=== PATIENT | male | born 1940 | race Caucasian/White ===

== ENCOUNTER 2017-10-17 07:22 | Day surgery (SDC) | payer MEDICARE, OTHER, SELFPAY ==
[2017-10-17 08:16] VITALS: BP 121/75; PULSE 79; RESP 16; TEMP 36.1; O2SAT 98; BMI 33.0
[2017-10-17] MEDS: PROPARACAINE 0.5% OPHTH SOL 2 DROPS EYE-OP (08:29)
[2017-10-17] MEDS: CATARACT EYE COMPOUND (10 DROPS/SYRINGE) 3 DROPS EYE-OP (08:31)
--- NOTE | 2017-10-17 09:33 | P.OP_ITS ---
Operative Date/Time/Diagnoses Pre-op diagnosis: Cataract Left eye Post-op diagnosis: same Procedure & Clinicians Surgeon: Esvin Cisse Anesthesia Type: MAC +/- and Sedation Operative Notes Procedure in detail: Patient brought to the operating suite. Tetracaine drops placed in the left eye. Patient was prepped and draped in sterile manner. Wire lid speculum was placed in the eye. Betadine drops were placed on the eye. This was irrigated. Lidocaine jelly was placed on the eye. A paracentesis port was created with a side-port blade. 0.1 mL 1% preservative free lidocaine was injected into the anterior chamber. The anterior chamber was deepened with viscoelastic. 2.6 mm keratome was used to create a temporal clear corneal incision. Cystotome and Utrata forceps were used to create continuous tear capsulorrhexis. Balanced salt solution was used to hydro dissect the nucleus. The phacoemulsification handpiece was inserted and the nucleus was removed using the stop and chop technique. The irrigation aspiration handpiece was inserted and the remaining cortex was removed. Anterior chamber was deepened with viscoelastic. An Abad ZCB00 intraocular lens with a power of 23.5 was injected into the capsular bag. Irrigation aspiration handpiece was inserted and the remaining viscoelastic was removed. Incision was hydrated with balanced salt solution and found to be leak free with pressure with Weck- Raina sponges. 0.1 mL Vigamox injected anterior chamber. 0.3 mL Kenalog 10 mg was injected subconjunctivally. Lid speculum was removed. The patient left the operating room in excellent condition. Complications: none Condition: stable Disposition: same day surgery
--- NOTE | 2017-10-17 09:33 | P.OP.PRE_ITS ---
Pre-operative Note Interval Note Changes: No
--- NOTE | 2017-10-17 09:33 | PM.PREOP ---
Pre-operative Note Interval Note Changes: No
[2017-10-17] MEDS: MOXIFLOXACIN OPHTH DROPS 3 ML BOTTLE 2 DROPS INJ (09:52)
[2017-10-17] MEDS: CHONDROIDTIN/SOD HYALURONATE 1.05 ML SYRINGE INTRAOCULA (09:52)
[2017-10-17] MEDS: PHENYLEPHRINE/LIDOCAINE VIAL (OR) 0.2 ML EYE-OP (09:52)
[2017-10-17] MEDS: LIDOCAINE JELLY 2% 5 ML 1 APPLIC TOP (09:52)
[2017-10-17] MEDS: TETRACAINE 0.5% OPHTH DROPS 15 ML 2 DROPS EYE-LEFT (09:52)
[2017-10-17] MEDS: BALANCED SALT IRRIG SOLN NO.2 500 ML, EPINEPHrine 1 MG IRR (09:53)
[2017-10-17] MEDS: TRIAMCINOLONE 50 MG/5 ML VIAL INJ (09:53)
[2017-10-17 10:24] VITALS: BP 117/79; PULSE 69; RESP 14; TEMP 36.3; O2SAT 96
== END 2017-10-17 10:24 | disposition home or self-care (01) ==
PROVIDERS: Family Provider Family Medicine; PCP Family Medicine; Visit Provider Ophthalmology
DX: H25.12 Age-related nuclear cataract, left eye (principal); G62.9 Polyneuropathy, unspecified; G47.33 Obstructive sleep apnea (adult) (pediatric)
CPT/HCPCS: J0171; J2250; J3010; J3301

== ENCOUNTER 2017-10-31 07:24 | Day surgery (SDC) | payer MEDICARE, OTHER, SELFPAY ==
[2017-10-31 07:46] VITALS: BP 110/67; PULSE 86; RESP 16; TEMP 36.3; O2SAT 97; BMI 34.3
[2017-10-31] MEDS: PROPARACAINE 0.5% OPHTH SOL 2 DROPS EYE-OP (07:57)
[2017-10-31] MEDS: CATARACT EYE COMPOUND (10 DROPS/SYRINGE) 3 DROPS EYE-OP (07:58)
--- NOTE | 2017-10-31 09:15 | P.OP.PRE_ITS ---
Pre-operative Note Interval Note Changes: No
--- NOTE | 2017-10-31 09:15 | PM.PREOP ---
Pre-operative Note Interval Note Changes: No
--- NOTE | 2017-10-31 09:16 | P.OP_ITS ---
Operative Date/Time/Diagnoses Pre-op diagnosis: Cataract Right eye Post-op diagnosis: same Procedure & Clinicians Procedure: Cataract Surgery Same procedure as scheduled: Yes Surgeon: Esvin Cisse Anesthesia Type: MAC +/- and Sedation Operative Notes Procedure in detail: Patient brought to the operating suite. Tetracaine drops placed in the right eye. Patient was prepped and draped in sterile manner. Wire lid speculum was placed in the eye. Betadine drops were placed on the eye. This was irrigated. Lidocaine jelly was placed on the eye. A paracentesis port was created with a side-port blade. 0.1 mL 1% preservative free lidocaine was injected into the anterior chamber. The anterior chamber was deepened with viscoelastic. 2.6 mm keratome was used to create a temporal clear corneal incision. Cystotome and Utrata forceps were used to create continuous tear capsulorrhexis. Balanced salt solution was used to hydro dissect the nucleus. The phacoemulsification handpiece was inserted and the nucleus was removed using the stop and chop technique. The irrigation aspiration handpiece was inserted and the remaining cortex was removed. Anterior chamber was deepened with viscoelastic. An Abad ZCB00 intraocular lens with a power of 24.5 was injected into the capsular bag. Irrigation aspiration handpiece was inserted and the remaining viscoelastic was removed. Incision was hydrated with balanced salt solution and found to be leak free with pressure with Weck- Raina sponges. 0.1 mL Vigamox injected anterior chamber. 0.3 mL Kenalog 10 mg was injected subconjunctivally. Lid speculum was removed. The patient left the operating room in excellent condition. Complications: none Condition: stable Disposition: same day surgery
--- NOTE | 2017-10-31 09:30 | SUR.OPER ---
Supine on eye stretcher, head on extension cradle secured with tape. Arms tucked at sides with blanket. Pillow under knees.
[2017-10-31] MEDS: TRIAMCINOLONE 50 MG/5 ML VIAL INJ (09:31)
[2017-10-31] MEDS: MOXIFLOXACIN OPHTH DROPS 3 ML BOTTLE 2 DROPS INJ (09:31)
[2017-10-31] MEDS: PHENYLEPHRINE/LIDOCAINE VIAL (OR) 0.2 ML EYE-OP (09:31)
[2017-10-31] MEDS: BALANCED SALT IRRIG SOLN NO.2 500 ML, EPINEPHrine 1 MG IRR (09:32)
[2017-10-31] MEDS: TETRACAINE 0.5% OPHTH DROPS 15 ML 2 DROPS EYE-RIGHT (09:32)
[2017-10-31] MEDS: CHONDROIDTIN/SOD HYALURONATE 1.05 ML SYRINGE INTRAOCULA (09:33)
[2017-10-31] MEDS: LIDOCAINE JELLY 2% 5 ML 1 APPLIC TOP (09:33)
[2017-10-31 09:47] VITALS: BP 100/63; PULSE 62; RESP 15; TEMP 36.6; O2SAT 98
[2017-10-31 09:52] VITALS: BP 110/67; PULSE 86; RESP 16; TEMP 36.3; O2SAT 97
== END 2017-10-31 10:13 ==
LOC: OR 07:26
PROVIDERS: Family Provider Family Medicine; PCP Family Medicine; Visit Provider Ophthalmology
DX: H25.11 Age-related nuclear cataract, right eye (principal); G47.33 Obstructive sleep apnea (adult) (pediatric)
CPT/HCPCS: J0171; J2250; J3010; J3301

== ENCOUNTER → 2018-10-30 14:13 | Outpatient (CLI) | payer MEDICARE, OTHER, SELFPAY ==
--- NOTE | 2018-10-30 14:17 | DI.RAD.S_ITS ---
PROCEDURE: XR CHEST 2V INDICATIONS: cough TECHNIQUE: 2 views of the chest were acquired. COMPARISON: [facility], CT, CT CHEST WITHOUT CONTRAST, 08/29/2017, 14:14. [facility], CR, CHEST 2 VIEW, 07/15/2014, 14:58. FINDINGS: Surgical changes and devices: None. Lungs and pleura: Right hemidiaphragm eventration. Lungs are clear. No pleural effusions or pneumothorax. Mediastinum: Mediastinal contours are normal. Heart size is normal. Bones and chest wall: No suspicious bony abnormalities. Soft tissues appear unremarkable. IMPRESSION: No acute cardiopulmonary disease. Dictated by: Demetrio Ruiz M.D. on 10/30/2018 at 16:11 Approved by: Demetrio Ruiz M.D. on 10/30/2018 at 16:12
== END ==
PROVIDERS: PCP Family Medicine; Visit Provider Family Medicine
DX: R05 Cough (principal); M79.89 Other specified soft tissue disorders
CPT/HCPCS: 71046

== ENCOUNTER 2019-01-30 16:39 | Emergency (ER) | payer MEDICARE, OTHER, SELFPAY ==
[2019-01-30 16:45] VITALS: BP 145/85; PULSE 76; RESP 20; O2SAT 99
--- NOTE | 2019-01-30 16:50 | DI.RAD.S_ITS ---
PROCEDURE: XR CHEST 1V INDICATIONS: sob/ syncope TECHNIQUE: One view of the chest was acquired. COMPARISON: [facility], CT, CT CHEST WITHOUT CONTRAST, 08/29/2017, 14:14. [facility], CR, XR CHEST 2V, 10/30/2018, 14:17. FINDINGS: Surgical changes and devices: None. Lungs and pleura: Lungs are clear. No pleural effusions or pneumothorax. Mediastinum: Mediastinal contours appear normal. Heart size is normal. There is elevation of the right hemidiaphragm, as before. Bones and chest wall: No suspicious bony lesions. Overlying soft tissues appear unremarkable. IMPRESSION: No acute cardiopulmonary findings. Dictated by: Roula Deleon M.D. on 01/30/2019 at 16:20 Approved by: Roula Deleon M.D. on 01/30/2019 at 16:23
--- NOTE | 2019-01-30 16:50 | DI.CT.S_ITS ---
PROCEDURE: CT HEAD/BRAIN WO CON INDICATIONS: syncope/ hit head TECHNIQUE: Noncontrast 4.5 mm thick angled axial sections acquired from the foramen magnum to the vertex, with coronal and sagittal reformats. For radiation dose reduction, the following was used: automated exposure control, adjustment of mA and/or kV according to patient size. COMPARISON: None. FINDINGS: Image quality: Excellent. CSF spaces: Basal cisterns are patent. No extra-axial fluid collections. The ventricles are symmetric in size and shape. Brain: No intracranial bleeds or masses. There is cerebral volume loss for age, with resultant ventricular and sulcal prominence. There are periventricular and deep white matter chronic small vessel ischemic changes. There is intracranial internal carotid artery atherosclerosis. Skull and face: Calvarium and visualized facial bones appear intact, without suspicious lesions. Sinuses: Visualized sinuses and mastoids are clear. IMPRESSION: No acute intracranial findings. Dictated by: Roula Deleon M.D. on 01/30/2019 at 16:23 Approved by: Roula Deleon M.D. on 01/30/2019 at 16:25
[2019-01-30 16:59] LABS: Add Manual Diff / Slide Review NO; Basophils Absolute Auto 0 /uL (0-100); Basophils Percent Auto 0.7 % (0-2); Eosinophils Absolute Auto 100 /uL (0-450); Eosinophils Percent Auto 1.3 % (2-4); Hematocrit 42.9 % (41-53); Hemoglobin 14.9 g/dL (13.5-17.5); Lymphocytes Absolute Auto 1300 /uL (1100-4500); Mean Corpuscular HGB Conc 34.7 % (30-36); Mean Corpuscular Hemoglobin 34.3 PG (26-34); Mean Corpuscular Volume 98.9 fL (80-100); Monocytes Absolute Auto 500 /uL (0-900); Monocytes Percent Auto 7.2 % (3-14); Neutrophils Absolute Auto 5500 /uL (1500-7000); Neutrophils Percent Auto 73.8 % (50-75); Platelet Count 201 X10^3/uL (150-400); Red Blood Cell Count 4.34 X10^6/uL (4.5-5.9); Red Cell Distribution Width 13.2 % (11.6-14.8); White Blood Cell Count 7.4 X10^3/uL (4.5-11.0)
[2019-01-30] MEDS: SODIUM CHLORIDE 0.9% 1,000 ML 150 ML IV (17:03)
[2019-01-30 17:06] LABS: INR 1.1 (0.9-1.3); Prothrombin Time 12.1 SECONDS (10.1-12.7)
[2019-01-30 17:11] LABS: Alanine Aminotransferase 21 IU/L (<50); Albumin 4.2 g/dL (3.5-5.0); Albumin Globulin Ratio 1.4 (1.0-2.8); Alkaline Phosphatase 63 U/L (38-126); Aspartate Aminotransferase 32 IU/L (17-59); BUN Creatinine Ratio 24.2 (6-22); Bilirubin Total 0.7 mg/dL (0.2-1.3); Blood Urea Nitrogen 29 mg/dL (9-20); Calcium 9.4 mg/dL (8.4-10.2); Carbon Dioxide 27 mmol/L (22-32); Chloride 100 mmol/L (98-107); Creatine Kinase 53 U/L (55-170); Estimated Glomerular Filt Rate 58.7 mL/min (>60); Globulin 2.9 g/dL (1.7-4.1); Glucose 146 mg/dL (80-110); HEMOLYSIS 29 (0-50); Magnesium 2.2 mg/dL (1.6-2.3); Potassium 4.6 mmol/L (3.4-5.1); Sodium 136 mmol/L (137-145); Total Protein 7.1 g/dL (6.3-8.2)
[2019-01-30 17:21] LABS: B Type Natriuretic Peptide < 100 (<100)
[2019-01-30 17:22] LABS: Troponin I < 0.012 ng/mL (0.01-0.034)
--- NOTE | 2019-01-30 17:28 | PC.NURSE ---
pt refusing flu test. ANSWERING SERVICE TELEPHONE OPERATOR made aware
--- NOTE | 2019-01-30 18:14 | PC.NURSE ---
pt refusing 2nd trop. declines wanting to continue to infuse fluids. asking to go home. BALANCE SHEET ANALYST aware and arranging DC
--- NOTE | 2019-01-30 19:05 | ED_ITS ---
HPI - Syncope <Cyndee Jewell, TARP REPAIRER-BC - Last Filed: 01/30/19 19:12> General Chief Complaint: Syncope Stated Complaint: passed out in kitchen,might have hit head Time Seen by Provider: 01/30/19 16:43 Source: patient and family Mode of arrival: Ambulatory Limitations: no limitations History of Present Illness HPI narrative: The patient is a 78-year-old male former smoker with history of asthma syncope who presents for chief complaint of syncope in the kitchen earlier today. He states he was reaching up towards the Fridge, and passed out for about 2 seconds. He states he thinks he hit his head on the Fridge. He states that he has passed out before is not very concerned about that. He is concerned about the fact that he hit his head. He denies chest pain shortness of breath, neck pain back pain. He states his head hurts. He is not concerned about his heart. He denies any fever nausea vomiting or diarrhea. He denies any abdominal pain. Related Data Home Medications Medication Instructions Recorded Confirmed Fish Oil (#FISH OIL) 1,000 iu PO Q DAY #0 09/16/10 10/30/18 Coenzyme Q10 (#COQ(10)10) 10 mg PO QDAY #0 05/30/12 10/30/18 Ginkgo Biloba (#GINKGO BILOBA PLUS) 1 cap PO QDAY #0 05/30/12 10/30/18 MULTIVITAMIN (#MULTIPLE VITAMINS) 1 cap PO QDAY #0 05/30/12 10/30/18 azelastine 2 spray INTRANASAL HSP PRN #0 01/19/16 10/30/18 diphenhydramine HCl [Benadryl 25 mg PO Q6HP PRN #0 05/04/17 10/30/18 Allergy] albuterol sulfate [ProAir HFA] 2 puff INHALATION Q4-6H PRN 10/17/17 10/30/18 calcium carbonate-vitamin D3 1 tab PO QDAY 10/17/17 10/30/18 [Oyster Shell Calcium-Vit D3] fluticasone propion-salmeterol 2 puff INHALATION BID 10/17/17 10/30/18 [Advair HFA] ibuprofen 400 mg PO BIDP PRN 10/17/17 10/30/18 oxymetazoline [Afrin 1 - 2 spray INTRANASAL HSP PRN 10/17/17 10/30/18 (oxymetazoline)] tiotropium bromide [Spiriva 2 puff INHALATION DAILY 10/17/17 10/30/18 Respimat] Previous Rx's Medication Instructions Recorded Spacer: Inhaler Spacer Device d INH Q4HP PRN #1 12/13/16 fluticasone propionate 50 1 spray INTRANASAL BID #3 bot 11/30/17 mcg/actuation nasal spray,suspension benzonatate 100 mg capsule 100 mg PO TID PRN #30 cap 06/06/18 Disabled Parking Permit #1 ea 06/12/18 tamsulosin 0.4 mg capsule 0.4 mg PO QDAY #90 cap 10/19/18 albuterol sulfate 2.5 mg CONTINUOUS NEBULIZATION QID 10/30/18 PRN PRN #75 ml aspirin 81 mg tablet,delayed 81 mg PO QDAY #100 tab 10/30/18 release furosemide 40 mg tablet 40 mg PO QDAY #90 tab 10/30/18 polyethylene glycol 3350 17 17 gram PO QDAY #1530 gram 10/30/18 gram/dose oral powder sertraline 50 mg tablet 50 mg PO .HS #90 tab 11/13/18 Allergies Allergy/AdvReac Type Severity Reaction Status Date / Time sulfadiazine [SULFADIAZINE] Allergy Mild CHILDHOOD Verified 10/30/18 13:43 ALLERGY Review of Systems <GRADY Buckley - Last Filed: 01/30/19 19:12> Review of Systems Narrative: GENERAL: Denies chills, fatigue, malaise, fever, sweats. HEENT: Denies sinus pain, ear pain, sore throat, difficulty swallowing, dizziness. RESPIRATORY: Denies dyspnea, cough, wheezing, hemoptysis, sputum. CARDIOVASCULAR: Denies chest pain, palpitations, orthopnea, edema, GASTROINTESTINAL: Denies nausea, vomiting, abdominal pain, diarrhea, constipation, melena. : Denies dysuria, frequency, incontinence, hematuria, urinary retention. MUSCULOSKELETAL: denies weakness, joint pain, or bony pain SKIN: Denies rash, skin lesions, or other NEUROLOGIC: See HPI PSYCHIATRIC: No concerning psychosocial issues. 12 point review of systems is negative except for those stated above Patient History <GRADY Buckley - Last Filed: 01/30/19 19:12> Medical History Asthma (Chronic) Chicken pox (Resolved 1971) Chronic headaches (Chronic) Colon polyps (Resolved 05/13/08) Diverticulosis, sigmoid (Chronic 05/13/08) Frequent UTI (Resolved) Hayfever (Chronic 1954) Head injury (Resolved 12/2011) Lesion of nose (Resolved) Mumps (Resolved ~1951) Peripheral neuropathy (Chronic) PTSD (post-traumatic stress disorder) (Chronic 1965) Rotator cuff injury (Resolved 2008) Shoulder pain (Chronic 2008) Skin tags, multiple acquired (Resolved) Sleep apnea (Chronic) Surgical History Anesthesia (Resolved) H/O wisdom tooth extraction (Resolved) History of colonoscopy with polypectomy (Resolved 05/13/08) History of colonoscopy with polypectomy (Resolved 11/09/15) History of local excision of skin lesion (Resolved) History of right cataract surgery (Resolved 10/31/17) History of surgery of head (Resolved 12/2011) Status post arthroscopy (Resolved 1997) Status post hernia repair (Resolved 10/2006) Status post surgical removal of nail matrix of toe (Resolved) Family History Brother Age: 89 Skin cancer Father Dementia Mental health problem Stroke Prostate cancer Grandfather Mental health problem Grandmother Heart disease Heart attack Mother Gallbladder disease Stroke Breast cancer Grandfather No problems noted. Grandmother No problems noted. Sister No problems noted. Social History household members: spouse Smoking Status: Former smoker Smoking Status: Former smoker Exam <GRADY Buckley - Last Filed: 01/30/19 19:12> Narrative Exam Narrative: GENERAL: This is a well-nourished, well-developed patient, in no acute distress HEAD: Atraumatic. Normocephalic. No temporal or scalp tenderness. EYES: Pupils equal round and reactive. Extraocular motions intact. No scleral icterus. No injection or drainage. ENT: Nose without bleeding, purulent drainage or septal hematoma. Throat without erythema, tonsillar hypertrophy or exudate. Uvula midline. Airway patent. NECK: Trachea midline. No JVD or lymphadenopathy. Supple, nontender, no meningeal signs. CARDIOVASCULAR: Regular rate and rhythm RESPIRATORY: Clear to auscultation. Breath sounds equal bilaterally. No wheezes, rales, or rhonchi. No cough. No increased respiratory effort. No accessory muscle use. GASTROINTESTINAL: Abdomen soft, non-tender, nondistended. No hepato- splenomegaly, or palpable masses. No guarding. Active bowel sounds all 4 quadrants. EXTREMITIES: No clubbing, cyanosis, or edema. No joint tenderness, effusion, or edema noted. BACK: Nontender without deformity or crepitance. No flank tenderness. No pain to CT or L-spine palpation. NEURO: AOx3. Steady gait. Using all extremities equally. No gross cranial nerve deficit. Clear speech. SKIN: No rash or erythema on visible skin Initial Vital Signs Initial Vital Signs: Vital Signs Pulse Rate 76 01/30/19 16:45 Respiratory Rate 20 01/30/19 16:45 Blood Pressure 145/85 H 01/30/19 16:45 Pulse Oximetry 99 01/30/19 16:45 <Mag Momin DO - Last Filed: 01/31/19 07:27> Initial Vital Signs Initial Vital Signs: Vital Signs Pulse Rate 76 01/30/19 16:45 Respiratory Rate 20 01/30/19 16:45 Blood Pressure 145/85 H 01/30/19 16:45 Pulse Oximetry 99 01/30/19 16:45 Course <GRADY Buckley - Last Filed: 01/30/19 19:12> Orders Ordered: Discontinued Medications Sodium Chloride (Normal Saline 0.9%) 1,000 mls @ 150 mls/hr IV CONT NANCY Last Infusion: 01/30/19 18:33 Dose: 0 mls/hr Documented by: Infusion: 01/30/19 17:04 Dose: 1,000 mls/hr Documented by: Admin: 01/30/19 17:03 Dose: 150 mls/hr Documented by: JIE Sodium Chloride (Normal Saline 0.9%) 1,000 mls @ 1,000 mls/hr IV BOLUS ONE Stop: 01/30/19 18:22 Last Admin: 01/30/19 18:33 Dose: Not Given Documented by: JIE Vital Signs Vital signs: Vital Signs - 8 hr 01/30/19 16:45 Pulse Rate 76 Respiratory Rate 20 Blood Pressure 145/85 H Pulse Oximetry 99 <Mag Momin DO - Last Filed: 01/31/19 07:27> Orders Ordered: Discontinued Medications Sodium Chloride (Normal Saline 0.9%) 1,000 mls @ 150 mls/hr IV CONT NANCY Last Infusion: 01/30/19 18:33 Dose: 0 mls/hr Documented by: Infusion: 01/30/19 17:04 Dose: 1,000 mls/hr Documented by: Admin: 01/30/19 17:03 Dose: 150 mls/hr Documented by: JIE Sodium Chloride (Normal Saline 0.9%) 1,000 mls @ 1,000 mls/hr IV BOLUS ONE Stop: 01/30/19 18:22 Last Admin: 01/30/19 18:33 Dose: Not Given Documented by: JIE Vital Signs Vital signs: Vital Signs - 8 hr 01/30/19 16:45 Pulse Rate 76 Respiratory Rate 20 Blood Pressure 145/85 H Pulse Oximetry 99 MDM - Syncope <GRADY Buckley - Last Filed: 01/30/19 19:12> Lab Data Attestation: I reviewed the patient's lab results. Result diagrams: 01/30/19 16:49 01/30/19 16:49 Labs: Lab Results 01/30/19 01/30/19 01/30/19 Range/Units 16:49 16:49 16:49 WBC 7.4 (4.5-11.0) X10^3/uL RBC 4.34 L (4.5-5.9) X10^6/uL Hgb 14.9 (13.5-17.5) g/dL Hct 42.9 (41-53) % MCV 98.9 (80-100) fL MCH 34.3 H (26-34) PG MCHC 34.7 (30-36) % RDW 13.2 (11.6-14.8) % Plt Count 201 (150-400) X10^3/uL Neut % (Auto) 73.8 (50-75) % Lymph % (Auto) 17.0 L (25-40) % Kemper % (Auto) 7.2 (3-14) % Eos % (Auto) 1.3 L (2-4) % Baso % (Auto) 0.7 (0-2) % Neut # (Auto) 5500 (5731-1040) /uL Lymph # (Auto) 1300 (2349-4082) /uL Kemper # (Auto) 500 (0-900) /uL Eos # (Auto) 100 (0-450) /uL Baso # (Auto) 0 (0-100) /uL PT 12.1 (10.1-12.7) SECONDS INR 1.1 (0.9-1.3) Sodium 136 L (137-145) mmol/L Potassium 4.6 (3.4-5.1) mmol/L Chloride 100 (98-107) mmol/L Carbon Dioxide 27 (22-32) mmol/L BUN 29 H (9-20) mg/dL Creatinine 1.20 (0.66-1.25) mg/dL Estimated GFR 58.7 L (>60) mL/min BUN/Creatinine Ratio 24.2 H (6-22) Glucose 146 H (80-110) mg/dL Calcium 9.4 (8.4-10.2) mg/dL Magnesium 2.2 (1.6-2.3) mg/dL Total Bilirubin 0.7 (0.2-1.3) mg/dL AST 32 (17-59) IU/L ALT 21 (<50) IU/L Alkaline Phosphatase 63 (38-126) U/L Total Creatine Kinase 53 L (55-170) U/L CK-MB (CK-2) TNP CK-MB (CK-2) Rel Index TNP Troponin I < 0.012 (0.01-0.034) ng/mL B-Natriuretic Peptide < 100 (<100) Total Protein 7.1 (6.3-8.2) g/dL Albumin 4.2 (3.5-5.0) g/dL Globulin 2.9 (1.7-4.1) g/dL Albumin/Globulin Ratio 1.4 (1.0-2.8) Imaging Data CT scan - head: Radiologist's Impression: [address] [address] [address] Scan Report Signed Patient: Willis Irwin R#: [id number] : [id number]:[id number] Age/Sex: 78 / MDate of Service: 01/30/19 Loc: ED Accession Number: [id number] Procedure: CT head/brain wo con Ordering Provider: Cyndee Jewell PROCEDURE: CT HEAD/BRAIN WO CON INDICATIONS: syncope/ hit head TECHNIQUE: Noncontrast 4.5 mm thick angled axial sections acquired from the foramen magnum to the vertex, with coronal and sagittal reformats. For radiation dose reduction, the following was used: automated exposure control, adjustment of mA and/or kV according to patient size. COMPARISON: None. FINDINGS: Image quality: Excellent. CSF spaces: Basal cisterns are patent. No extra-axial fluid collections. The ventricles are symmetric in size and shape. Brain: No intracranial bleeds or masses. There is cerebral volume loss for age, with resultant ventricular and sulcal prominence. There are periventricular and deep white matter chronic small vessel ischemic changes. There is intracranial internal carotid artery atherosclerosis. Skull and face: Calvarium and visualized facial bones appear intact, without s uspicious lesions. Sinuses: Visualized sinuses and mastoids are clear. IMPRESSION: No acute intracranial findings. Dictated by: Roula Deleon M.D. on 01/30/2019 at 16:23 Approved by: Roula Deleon M.D. on 01/30/2019 at 16:25 Chest x-ray: Radiologist's Impression: Willis Irwin J 78 M [address] [address] XRay Report Signed Patient: Willis Irwin R#: [id number] : 2Acct:[id number] Age/Sex: 78 / MDate of Service: 01/30/19 Loc: ED Accession Number: [id number] Procedure: XR chest 1V Ordering Provider: Cyndee Jewell PROCEDURE: XR CHEST 1V INDICATIONS: sob/ syncope TECHNIQUE: One view of the chest was acquired. COMPARISON: [facility], CT, CT CHEST WITHOUT CONTRAST, 08/29/2017, 14:14. [facility], CR, XR CHEST 2V, 10/30/2018, 14:17. FINDINGS: Surgical changes and devices: None. Lungs and pleura: Lungs are clear. No pleural effusions or pneumothorax. Mediastinum: Mediastinal contours appear normal. Heart size is normal. There is elevation of the right hemidiaphragm, as before. Bones and chest wall: No suspicious bony lesions. Overlying soft tissues appear unremarkable. IMPRESSION: No acute cardiopulmonary findings. Dictated by: Roula Deleon M.D. on 01/30/2019 at 16:20 Approved by: Roula Deleon M.D. on 01/30/2019 at 16:23 ECG Data Attestation: I personally reviewed and interpreted this ECG as follows: Interpretation: Sinus rhythm. Ventricular rate 63. P.r. [address]RS 107[address] View[address] by Dr. Momin MDM Narrative Medical decision making narrative: The patient is a 78-year-old male who presents with a chief complaint of hitting his head after a short episode of syncope earlier today. He states he does have episodes of syncope, has had them before and is not concerned about that. He is more concerned about the fact that he hit his head. Given that he did hit his head, has older age, I did get a head CT which came back negative for any acute findings. The patient also had a chest x-ray, basic lab work and a troponin. Initial troponin was negative. Chest x-ray had no acute findings. I discussed further IV fluids as I suspect the patient is dehydrated given his BUN creatinine, and initial dry mucous membranes on exam, as well as a 2nd troponin in 3 hours after the 1st 1. The patient declined to wait for further IV fluids, declined a 2nd troponin. I stated that this would help rule out an acute cardiac event, but the patient did not want to wait and wanted to leave. I discussed that this increases as risks and he is okay with that. Patient states understanding of return precautions as well as follow-up care and has no questions or concerns upon discharge. Discussed following up with PCP in the next few days. Discussed coming back to ER for any acute concerns such as chest pain, shortness of breath etcetera <Mag Momin, DO - Last Filed: 01/31/19 07:27> Lab Data Labs: Lab Results 01/30/19 01/30/19 01/30/19 Range/Units 16:49 16:49 16:49 WBC 7.4 (4.5-11.0) X10^3/uL RBC 4.34 L (4.5-5.9) X10^6/uL Hgb 14.9 (13.5-17.5) g/dL Hct 42.9 (41-53) % MCV 98.9 (80-100) fL MCH 34.3 H (26-34) PG MCHC 34.7 (30-36) % RDW 13.2 (11.6-14.8) % Plt Count 201 (150-400) X10^3/uL Neut % (Auto) 73.8 (50-75) % Lymph % (Auto) 17.0 L (25-40) % Kemper % (Auto) 7.2 (3-14) % Eos % (Auto) 1.3 L (2-4) % Baso % (Auto) 0.7 (0-2) % Neut # (Auto) 5500 (0800-0263) /uL Lymph # (Auto) 1300 (7678-8999) /uL Kemper # (Auto) 500 (0-900) /uL Eos # (Auto) 100 (0-450) /uL Baso # (Auto) 0 (0-100) /uL PT 12.1 (10.1-12.7) SECONDS INR 1.1 (0.9-1.3) Sodium 136 L (137-145) mmol/L Potassium 4.6 (3.4-5.1) mmol/L Chloride 100 (98-107) mmol/L Carbon Dioxide 27 (22-32) mmol/L BUN 29 H (9-20) mg/dL Creatinine 1.20 (0.66-1.25) mg/dL Estimated GFR 58.7 L (>60) mL/min BUN/Creatinine Ratio 24.2 H (6-22) Glucose 146 H (80-110) mg/dL Calcium 9.4 (8.4-10.2) mg/dL Magnesium 2.2 (1.6-2.3) mg/dL Total Bilirubin 0.7 (0.2-1.3) mg/dL AST 32 (17-59) IU/L ALT 21 (<50) IU/L Alkaline Phosphatase 63 (38-126) U/L Total Creatine Kinase 53 L (55-170) U/L CK-MB (CK-2) TNP CK-MB (CK-2) Rel Index TNP Troponin I < 0.012 (0.01-0.034) ng/mL B-Natriuretic Peptide < 100 (<100) Total Protein 7.1 (6.3-8.2) g/dL Albumin 4.2 (3.5-5.0) g/dL Globulin 2.9 (1.7-4.1) g/dL Albumin/Globulin Ratio 1.4 (1.0-2.8) Discharge Plan Departure Patient Disposition: Home Clinical Impression: Syncope Qualifiers: Syncope type: unspecified Qualified Code(s): R55 - Syncope and collapse Discharge Date/Time: 01/30/19 18:45 Instructions: DI for Syncope in Adults (Fainting), Fainting Activity Restrictions/Additional Instructions: Today you came to the emergency department for passing out and hitting your hea d. Your initial lab work came back well, your head CT had no acute findings You declined to wait for a 2nd cardiac lab, further IV fluids etcetera Please follow-up with primary care provider in the next few days. Please come back to the emergency department for any acute concerns such as chest pain, shortness of breath, concern of heart attack or stroke Prescriptions: No Action benzonatate [Tessalon Perles] 100 mg capsule 100 mg PO TID PRN (Reason: cough) Qty: 30 RF: 0 aspirin 81 mg tablet,delayed release (DR/EC) 81 mg PO QDAY Qty: 100 RF: 3 polyethylene glycol 3350 [Miralax] 17 gram/dose powder 17 gram PO QDAY Qty: 1530 RF: 3 albuterol sulfate 2.5 mg /3 mL (0.083 %) solution for nebulization 2.5 mg continuous nebulization QID PRN PRN (Reason: Asthma) Qty: 75 RF: 0 furosemide 40 mg tablet 40 mg PO QDAY Qty: 90 RF: 3 Fish Oil (#FISH OIL) 1,000 iu PO Q DAY Qty: 0 RF: 0 Coenzyme Q10 (#COQ(10)10) 10 mg PO QDAY Qty: 0 RF: 0 MULTIVITAMIN (#MULTIPLE VITAMINS) 1 cap PO QDAY Qty: 0 RF: 0 Ginkgo Biloba (#GINKGO BILOBA PLUS) 1 cap PO QDAY Qty: 0 RF: 0 azelastine 137 MCG/0.137 ML aerosol,spray 2 spray Intranasal HSP PRN (Reason: Sinus congestion) Qty: 0 RF: 0 Spacer: Inhaler Spacer Device INH Q4HP PRNQty: 1 RF: 0 diphenhydramine HCl [Benadryl Allergy] 25 MG tablet 25 mg PO Q6HP PRN (Reason: allergies) Qty: 0 RF: 0 fluticasone propionate 50 mcg/actuation spray,suspension 1 spray Intranasal BID Qty: 3 RF: 3 (DME) Disabled Parking Permit Qty: 1 RF: 0 tamsulosin [Flomax] 0.4 mg capsule 0.4 mg PO QDAY Qty: 90 RF: 3 sertraline [Zoloft] 50 mg tablet 50 mg PO .HS Qty: 90 RF: 3 ibuprofen 400 MG tablet 400 mg PO BIDP PRN (Reason: Pain) RF: 0 oxymetazoline [Afrin (oxymetazoline)] 0.05 % spray,non-aerosol 1 - 2 spray Intranasal HSP PRN (Reason: Sinus congestion) RF: 0 calcium carbonate-vitamin D3 [Oyster Shell Calcium-Vit D3] 500 MG/200 IU tablet 1 tab PO QDAY RF: 0 albuterol sulfate [ProAir HFA] 90 mcg/actuation Hfa Aerosol Inhaler 2 puff INHALATION Q4-6H PRN (Reason: Wheezing) RF: 0 fluticasone propion-salmeterol [Advair HFA] 230-21 mcg/actuation Hfa Aerosol Inhaler 2 puff INHALATION BID RF: 0 tiotropium bromide [Spiriva Respimat] 1.25 mcg/actuation Mist 2 puff INHALATION DAILY RF: 0 Referrals: Adam Ramírez MD [Primary Care Provider] -
== END 2019-01-30 18:45 | disposition home or self-care (01) ==
PROVIDERS: Emergency Provider Nurse Practitioner Family; PCP Family Medicine
DX: R55 Syncope and collapse (principal); R03.0 Elevated blood-pressure reading, without diagnosis of hypertension
CPT/HCPCS: 36415; 70450; 71045; 80053; 82550; 83735; 83880; 84484; 85025; 85610; 93005; 96360; 99284; 99285

== ENCOUNTER → 2020-04-28 11:22 | Outpatient (CLI) | payer MEDICARE, OTHER, SELFPAY ==
--- NOTE | 2020-04-28 11:26 | DI.RAD.S_ITS ---
PROCEDURE: XR CHEST 2V INDICATIONS: [facility] [place] TECHNIQUE: 2 views of the chest were acquired. COMPARISON: [facility], CR, XR CHEST 2V, 10/30/2018, 14:17. [facility], CR, CHEST 2 VIEW, 07/15/2014, 14:58. [facility], CR, XR CHEST 1V, 01/30/2019, 16:48. FINDINGS: Surgical changes and devices: None. Lungs and pleura: Lungs are clear. No pleural effusions or pneumothorax. Chronic elevation right hemidiaphragm redemonstrated. Mediastinum: Mediastinal contours are normal. Heart size is normal. Bones and chest wall: No suspicious bony abnormalities. Soft tissues appear unremarkable. IMPRESSION: No acute cardiopulmonary disease. Dictated by: Benedict KWONG Interpreted: Adam Watts MD on 04/28/2020 at 16:12 Approved by: Adam Watts M.D. on 04/28/2020 at 16:40
[2020-04-28 12:15] LABS: Add Manual Diff / Slide Review NO; Basophils Absolute Auto 100 /uL (0-100); Basophils Percent Auto 0.7 % (0-2); Eosinophils Absolute Auto 100 /uL (0-450); Eosinophils Percent Auto 1.5 % (2-4); Hematocrit 42.6 % (41-53); Hemoglobin 14.6 g/dL (13.5-17.5); Lymphocytes Absolute Auto 1400 /uL (1100-4500); Mean Corpuscular HGB Conc 34.3 % (30-36); Mean Corpuscular Hemoglobin 33.7 PG (26-34); Mean Corpuscular Volume 98.3 fL (80-100); Monocytes Absolute Auto 600 /uL (0-900); Monocytes Percent Auto 8.3 % (3-14); Neutrophils Absolute Auto 5300 /uL (1500-7000); Neutrophils Percent Auto 70.5 % (50-75); Platelet Count 164 X10^3/uL (150-400); Red Blood Cell Count 4.34 X10^6/uL (4.5-5.9); Red Cell Distribution Width 13.6 % (11.6-14.8); White Blood Cell Count 7.6 X10^3/uL (4.5-11.0)
[2020-04-28 13:17] LABS: TSH w/ Reflex to FT4 5.12 uIU/mL (0.47-4.68)
[2020-04-28 13:19] LABS: Prostate Specific Antigen 3.76 ng/mL (0.10-4.00)
[2020-04-28 15:07] LABS: Free T4, Direct Thyroxine 1.06 ng/dL (0.78-2.19)
== END ==
PROVIDERS: PCP Family Medicine; Referring Provider Family Medicine; Visit Provider Family Medicine
DX: R05 Cough (principal); E78.5 Hyperlipidemia, unspecified; G62.9 Polyneuropathy, unspecified; I10 Essential (primary) hypertension; J45.20 Mild intermittent asthma, uncomplicated
CPT/HCPCS: 36415; 71046; 84153; 84439; 84443; 85025

== ENCOUNTER → 2020-04-30 07:59 | Outpatient (CLI) | payer MEDICARE, OTHER, SELFPAY ==
[2020-04-30 08:40] LABS: COVID19 -Nasal RAPID Negative (Negative)
[2020-04-30 09:12] LABS: Cholesterol 146 mg/dL (140-199); HDL Cholesterol 59 mg/dL (40-60); LDL Cholesterol Calculated 77 mg/dL (<100); Triglycerides 48 mg/dL (35-150)
== END ==
PROVIDERS: PCP Family Medicine; Referring Provider Family Medicine; Visit Provider Family Medicine
DX: E78.5 Hyperlipidemia, unspecified (principal); G62.9 Polyneuropathy, unspecified; I10 Essential (primary) hypertension; J45.20 Mild intermittent asthma, uncomplicated; Z20.822 Contact with and (suspected) exposure to COVID-19; R05 Cough
CPT/HCPCS: 36415; 80061; 87635; 94060; 94726; 94729; C9803

== ENCOUNTER → 2020-04-30 08:00 | Outpatient (CLI) | payer MEDICARE, OTHER, SELFPAY ==
--- NOTE | 2020-05-06 10:30 | PM.PFT.1 ---
Pulmonary Function Test Referral & Results Date Patient Seen: 04/30/20 Requesting provider: Adam Ramírez Results: The spirometry demonstrates an FVC of 2.70 L which is 63% of predicted. The FEV1 was measured at 2.21 L which is 72% of predicted. The FEV1/FVC ratio was 82 which is 113% of predicted. Following the administration of bronchodilator there was a 23% improvement in FEF 25-75%. Lung volumes show an SVC of 2.87 L which is 62% of predicted. The diffusing capacity was measured at 24.03 which is 71% of predicted. No hemoglobin value was provided, so no correction for potential anemia could be made, if appropriate. The maximum voluntary ventilation was normal Interpretation: This study demonstrates perhaps very mild obstructive lung disease based on reduction FEV1 although FEV1/FVC ratio is preserved and shape a flow volume loop is not necessarily consistent with obstructive lung disease there is however a minimal benefit in small airway flow based on improvement in FEF 25-75% as above after bronchodilator administration There is also [id number] reduction in lung volumes suggesting an element of restrictive lung disease is present There is also [id number] reduction diffusing capacity suggesting disease at the capillary alveolar level as well Overall level of restrictive lung disease present is notably greater than obstructive lung disease which would be more suggestive interstitial type process. Clinical correlation suggested
== END ==
PROVIDERS: PCP Family Medicine; Referring Provider Family Medicine; Visit Provider Family Medicine
DX: R05 Cough (principal)
CPT/HCPCS: 94060; 94726; 94729; C9803

== ENCOUNTER → 2020-05-05 13:24 | Outpatient (CLI) | payer MEDICARE, OTHER, SELFPAY ==
[2020-05-05 14:58] LABS: BUN Creatinine Ratio 22.3 (6-22); Blood Urea Nitrogen 31 mg/dL (9-20); Estimated Glomerular Filt Rate 49.4 mL/min (>60)
== END ==
PROVIDERS: PCP Family Medicine; Referring Provider Family Medicine; Visit Provider Family Medicine
DX: Z01.812 Encounter for preprocedural laboratory examination (principal)
CPT/HCPCS: 36415; 82565; 84520

== ENCOUNTER → 2020-05-07 11:43 | Outpatient (CLI) | payer MEDICARE, OTHER, SELFPAY ==
--- NOTE | 2020-05-07 11:44 | DI.CT.S_ITS ---
PROCEDURE: CT CHEST W CON INDICATIONS: Dyspnea/? Fibrosis on PFT TECHNIQUE: After the administration of intravenous contrast, 5 mm thick sections acquired from the pulmonary apices to the posterior costophrenic angles. 1 mm axial lung, 5 mm thick coronal and sagittal reformats and 7 mm axial MIP were acquired. For radiation dose reduction, the following was used: automated exposure control, adjustment of mA and/or kV according to patient size. COMPARISON: [facility], CT, CT CHEST WITHOUT CONTRAST, 08/29/2017, 14:14. [facility], CR, XR CHEST 2V, 04/28/2020, 11:32. FINDINGS: Image quality: Excellent. Lungs and pleura: Large body habitus, reduced inspiratory volume, suspect restrictive lung disease. No area of alveolitis or pulmonary fibrosis is present. No acute air space opacities. No pleural effusions or pneumothorax. Central and peripheral airways are patent and normal in caliber. Mediastinum: Heart size is normal. No pericardial effusion. No mediastinal or hilar adenopathy by size criteria. Thoracic aorta and central pulmonary arteries are normal in size. Esophagus is normal in caliber. No hiatal hernia. Bones and chest wall: No suspicious bony lesions. No vertebral body compression fractures. No axillary or supraclavicular adenopathy by size criteria. Thyroid gland is not well seen but appears normal where well visualized. . Abdomen: Visualized upper abdominal solid organs appear normal. Upper abdominal bowel loops are normal in caliber. IMPRESSION: Large body habitus, reduced inspiratory volume, no evidence of alveolitis or pulmonary fibrosis. In this clinical circumstance underlying restrictive lung disease is the likely cause for chronic dyspnea. Dictated by: Oswaldo Wiley M.D. on 05/07/2020 at 14:27 Approved by: Oswaldo Wiley M.D. on 05/07/2020 at 14:29
== END ==
PROVIDERS: PCP Family Medicine; Referring Provider Family Medicine; Visit Provider Family Medicine
DX: R05 Cough (principal); R06.00 Dyspnea, unspecified
CPT/HCPCS: 71260

== ENCOUNTER → 2021-02-09 09:21 | Outpatient (CLI) | payer MEDICARE, OTHER, SELFPAY ==
--- NOTE | 2021-02-09 09:25 | DI.US.S_ITS ---
LIMITED ULTRASOUND OF LEFT BREAST: 02/09/2021 CLINICAL: Palpable left breast lump by physician and focal pain. Comparison is made to exam dated: 02/09/2021 [facility]. Ultrasound of the left breast 3 o'clock, and retroareolar regions was performed. Shi scale images of the real-time examination were reviewed. No significant abnormalities were seen sonographically in the left breast. Specifically, no finding to explain the patient's pain. IMPRESSION: NEGATIVE Asymmetric gynecomastia is present by mammogram and may be symptomatic. There is no sonographic evidence of malignancy or other finding. Clinical evaluation to determine etiology of gynecomastia is recommended. Findings and recommendations were conveyed to the patient at time of exam. This exam was interpreted at Station ID: [id number]. Electronically Signed By: Lucila mensah/:02/09/2021 11:04:54 letter sent: Normal Exam Ultrasound BI-RADS: 1 Negative
--- NOTE | 2021-02-09 09:25 | DI.MG.S_ITS ---
MALE BILATERAL DIGITAL DIAGNOSTIC MAMMOGRAM 3D/2D: 02/09/2021 CLINICAL: Left breast mass. No prior exams were available for comparison. There is a small amount of asymmetric gynecomastia in the lateral left breast that correlates with reported tenderness and palpable area. No significant masses, calcifications, or other findings are seen in either breast. IMPRESSION: INCOMPLETE: NEEDS ADDITIONAL IMAGING EVALUATION Asymmetric gynecomastia is present and may be symptomatic. Because of the slightly lateral development of breast tissue, ultrasound is recommended for full evaluation of this area to confirm diagnosis. This was performed immediately following this exam. This exam was interpreted at Station ID: [id number]. NOTE: For mammograms, a report in lay terms will be sent to the patient. Approximately 15% of breast malignancies will not be visualized mammographically. In the management of a palpable breast mass, a negative mammogram must not discourage biopsy of a clinically suspicious lesion. Electronically Signed By: Lucila mensah/:02/09/2021 10:32:55 ACR BI-RADS Category 0: Incomplete [id number]
[2021-02-09 12:31] LABS: Add Manual Diff / Slide Review NO; Basophils Absolute Auto 0 /uL (0-100); Basophils Percent Auto 0.4 % (0-2); Eosinophils Absolute Auto 100 /uL (0-450); Eosinophils Percent Auto 1.8 % (2-4); Hematocrit 45.7 % (41-53); Hemoglobin 15.5 g/dL (13.5-17.5); Lymphocytes Absolute Auto 1100 /uL (1100-4500); Mean Corpuscular HGB Conc 33.9 % (30-36); Mean Corpuscular Hemoglobin 33.3 PG (26-34); Mean Corpuscular Volume 98.3 fL (80-100); Monocytes Absolute Auto 500 /uL (0-900); Monocytes Percent Auto 7.5 % (3-14); Neutrophils Absolute Auto 5300 /uL (1500-7000); Neutrophils Percent Auto 74.3 % (50-75); Platelet Count 174 X10^3/uL (150-400); Red Blood Cell Count 4.65 X10^6/uL (4.5-5.9); Red Cell Distribution Width 13.4 % (11.6-14.8); White Blood Cell Count 7.2 X10^3/uL (4.5-11.0)
[2021-02-09 12:59] LABS: Alanine Aminotransferase 28 IU/L (<50); Albumin 4.3 g/dL (3.5-5.0); Albumin Globulin Ratio 1.2 (1.0-2.8); Alkaline Phosphatase 56 U/L (38-126); Aspartate Aminotransferase 31 IU/L (17-59); BUN Creatinine Ratio 21.7 (6-22); Bilirubin Total 0.8 mg/dL (0.2-1.3); Blood Urea Nitrogen 38 mg/dL (9-20); Calcium 10.1 mg/dL (8.4-10.2); Carbon Dioxide 27 mmol/L (22-32); Chloride 103 mmol/L (98-107); Estimated Glomerular Filt Rate 37.8 mL/min (>60); Globulin 3.5 g/dL (1.7-4.1); Glucose 87 mg/dL (80-110); HEMOLYSIS < 15 (0-50); Potassium 4.7 mmol/L (3.4-5.1); Sodium 139 mmol/L (137-145); Total Protein 7.8 g/dL (6.3-8.2)
[2021-02-09 13:04] LABS: NT-proBNP (BNP-Adult 18+) 377 pg/mL (<450)
[2021-02-09 13:28] LABS: Thyroid Stimulating Hormone 5.17 uIU/mL (0.47-4.68)
[2021-02-09 13:45] LABS: Vitamin B12 690 pg/mL (239-931)
[2021-02-09 15:46] LABS: Vitamin D 25 Hydroxy (D3) 65.1 ng/mL (30.0-100.0)
== END ==
PROVIDERS: PCP Family Medicine; Referring Provider Physician Assistant; Visit Provider Physician Assistant
DX: N62 Hypertrophy of breast (principal); E78.5 Hyperlipidemia, unspecified; I10 Essential (primary) hypertension; R06.00 Dyspnea, unspecified; E55.9 Vitamin D deficiency, unspecified; N40.0 Benign prostatic hyperplasia without lower urinary tract symptoms; R60.9 Edema, unspecified; R53.83 Other fatigue
CPT/HCPCS: 36415; 76642; 77066; 80053; 82306; 82607; 83880; 84443; 85025; G0279

== ENCOUNTER → 2021-02-17 13:31 | Outpatient (CLI) | payer MEDICARE, OTHER, SELFPAY ==
--- NOTE | 2021-02-17 13:33 | DI.ECHO.S_ITS ---
[facility] +---------+ : : [address] : : : : [id number] : : : : Phone: [phone]+ Echocardiogram Report + + :Name: PARUL DAIGLE Study Date: 02/17/2021 Height: 71 in : :[facility] ReadingLocation: Weight: 265 lb : : Gender: Male BSA: 2.4 m2 : :: 1940 Age: 80 yrs BP: 157/84 mmHg: :Reason For Study: DYSPNEA ON EXERTION, PERIPHERAL EDEMA, : :HYPERTENSION : :Ordering Physician: ELBA, : :PAGE Cook Performed By: Jessica Coyle : :Referring: PAGE ARREOLA : + + Interpretation Summary 1) Normal left ventricular size, thickness, and systolic function (EF 55-60%). 2) Distal anterior wall, distal anterolateral wall, and distal inferolateral wall may have subtle hypokinesis. 3) Normal sized right ventricle. Basal to mid RV has normal wall motion. Apical RV appears to be tethered to the LV apex an moves with it. The significance of this finding is unclear. Correlate clinically. 4) No significant valvular abnormalitites. 5) No prior Echo avaliable for comparison. Procedure: A two-dimensional transthoracic echocardiogram with color flow and Doppler was performed. The study quality was technically difficult. A contrast injection of Definity was performed to improve assessment of LV function. The patient was in sinus rhythm with heart rates between 57-66 bpm during the exam. Left Ventricle: The left ventricle is normal in size and wall thickness. The ejection fraction is estimated to be 55-60%. Distal anterior wall, distal anterolateral wall, and distal inferolateral wall may have subtle hypokinesis. Right Ventricle: The right ventricle is grossly normal size. Basal to mid RV has normal wall motion. Apical RV appears to be tethered to the LV apex an moves with it. Atria: The left atrial size is normal. Right atrial size is normal. There is no Doppler evidence for an interatrial shunt. Mitral Valve: The mitral valve is normal in structure and function. There is mild mitral regurgitation. Aortic Valve: The aortic valve is not well visualized. There is no aortic valve stenosis. No aortic regurgitation is present. Tricuspid Valve: The tricuspid valve is normal in structure and function. No tricuspid regurgitation. Pulmonary artery pressures cannot be estimated because of the lack of a measurable TR jet velocity. Pulmonic Valve: The pulmonic valve is not well seen, but is grossly normal. There is no pulmonic valvular regurgitation. Great Vessels: The aortic root is normal size. The ascending aorta is at the upper limits of normal in size. The inferior vena cava was not well visualized. Pericardium/ Pleura There is no pericardial effusion. There is no pleural effusion. MMode/2D Measurements & Calculations LVIDd: 5.4 cm LVOT diam: 2.3 cm LVIDs: 3.5 cm Ao root diam: 3.5 cm FS: 34.7 % asc Aorta Diam: 3.9 cm IVSd: 1.0 cm Ao Arch Diam (Prox Trans): 3.3 cm LVPWd: 0.99 cm LV barnes. diameter/BSA (cm/m^2): 2.3 LV sys. diameter/BSA (cm/m^2): 1.5 LA A2 area: 21.3 cm2 RA long axis: 6.3 cm LA A4 area: 15.8 cm2 RA area: 14.4 cm2 LA length (vol): 4.5 cm RA vol: 28.2 ml LA vol: 63.7 ml RA : 11.9 ml/m2 LA vol index: 26.8 ml/m2 RVDd major: 6.0 cm RVD1 (basal): 3.0 cm RVD2 (mid): 3.3 cm TAPSE: 1.9 cm Doppler Measurements & Calculations Ao V2 max: 128.6 cm/sec LVOT Max Nathan: 76.8 cm/sec Ao V2 mean: 91.5 cm/sec LV V1 max P.4 mmHg Ao max P.7 mmHg LV V1 VTI: 17.2 cm Ao mean P.6 mmHg KVNG(I,D): 3.1 cm2 Ao V2 VTI: 23.4 cm KVNG(V,D): 2.5 cm2 sev ratio: 0.74 KVNG indexed to BSA (cm^2/m^2): 1.3 MV E max nathan: 57.4 cm/sec PA V2 max: 119.3 cm/sec MV A max nathan: 63.8 cm/sec PA V2 mean: 80.2 cm/sec MV E/A: 0.90 PA mean P.8 mmHg Med Peak E' Nathan: 6.1 cm/sec PA pr(Accel): 37.9 mmHg E/E' med: 9.4 Lat Peak E' Nathan: 7.1 cm/sec E/E' lat: 8.0 E/e' average: 8.7 MV dec time: 0.20 sec SV(LVOT): 72.0 ml Reading Physician:04:48 PM
[2021-02-17 15:39] LABS: Appearance Urine UA CLEAR; Bilirubin Urine UA NEGATIVE (NEGATIVE); Color Urine UA YELLOW; Glucose Urine UA NEGATIVE (Negative); Ketones Urine UA NEGATIVE (NEGATIVE); Leukocyte Esterase Urine UA NEGATIVE (NEGATIVE); Nitrite Urine UA NEGATIVE (Negative); Occult Blood Urine UA NEGATIVE (Negative); Protein Urine UA NEGATIVE (Negative); pH Urine UA 6.5 (4.5-8.0)
[2021-02-17 15:55] LABS: Bacteria Urine None Seen; Culture Indicated Urine Cult Not Indicated; RBC Urine 0-1/HPF (0-5/HPF); Squamous Epithelial Cell Urine 0-1 /HPF (0-5/HPF); WBC Urine 0-1/HPF (0-5/HPF)
== END ==
PROVIDERS: PCP Family Medicine; Referring Provider Physician Assistant; Visit Provider Physician Assistant
DX: I34.0 Nonrheumatic mitral (valve) insufficiency (principal); I10 Essential (primary) hypertension; R06.00 Dyspnea, unspecified; R79.89 Other specified abnormal findings of blood chemistry; R60.0 Localized edema
CPT/HCPCS: 81001; 93306

== ENCOUNTER → 2021-02-18 13:07 | Outpatient (CLI) | payer MEDICARE, OTHER, SELFPAY ==
--- NOTE | 2021-02-18 13:08 | DI.US.S_ITS ---
PROCEDURE: US RENAL COMPLETE INDICATIONS: ELEVATED CREATININE AND BUN. TECHNIQUE: Real-time scanning was performed of the kidneys and bladder, with image documentation. COMPARISON: None. FINDINGS: Kidneys: Kidneys are normal in size. Right kidney measures 12.0 cm long; left kidney measures 11.3 cm long. Right renal cortical thickness is 1.7 cm; left renal cortical thickness is 1.2 cm. Renal cortical echotexture is normal. No hydronephrosis or nephrolithiasis. No suspicious solid mass lesions. Left mildly complex renal cyst redemonstrated not significant changed measuring up to 5.9 cm. Bladder: Pre-void bladder volume is 60 mL. Post-void residual is unable to be assessed. Pre-void images demonstrate no intraluminal masses or stones. On pre-void images, bilateral ureteral jets are noted with color Doppler interrogation. (Of note, ureteral jets may not be detectable in up to 25% of cases due to insufficient differences in specific gravity between ureteral and bladder urine). Miscellaneous: No free pelvic fluid. Mild sonographic splenomegaly with the spleen measuring 13.1 cm. IMPRESSION: 1. No significant change in mildly complex left renal cyst measuring up to 5.9 cm; otherwise the kidneys are grossly normal. Dictated by: Benedict KWONG Interpreted: Maranda Talbert MD on 02/18/2021 at 14:20 Transcribed by: GIL on 02/18/2021 at 14:22 Approved by: Maranda Talbert M.D. on 02/18/2021 at 14:29
== END ==
PROVIDERS: PCP Family Medicine; Referring Provider Physician Assistant; Visit Provider Physician Assistant
DX: R79.89 Other specified abnormal findings of blood chemistry (principal); N40.1 Benign prostatic hyperplasia with lower urinary tract symptoms; R39.16 Straining to void; R53.83 Other fatigue; R60.9 Edema, unspecified; N28.1 Cyst of kidney, acquired
CPT/HCPCS: 76770

== ENCOUNTER → 2021-03-19 14:46 | Outpatient (CLI) | payer MEDICARE, OTHER, SELFPAY ==
[2021-03-19 15:17] LABS: BUN Creatinine Ratio 25.6 (6-22); Blood Urea Nitrogen 34 mg/dL (9-20); Calcium 9.5 mg/dL (8.4-10.2); Carbon Dioxide 25 mmol/L (22-32); Chloride 109 mmol/L (98-107); Estimated Glomerular Filt Rate 51.9 mL/min (>60); Glucose 124 mg/dL (80-110); HEMOLYSIS < 15 (0-50); Potassium 4.7 mmol/L (3.4-5.1); Sodium 141 mmol/L (137-145)
[2021-03-19 16:10] LABS: Free T3, Triiodothyronine Free 3.73 pg/mL (2.77-5.27)
[2021-03-19 16:24] LABS: TSH w/ Reflex to FT4 2.15 uIU/mL (0.47-4.68)
== END ==
PROVIDERS: PCP Family Medicine; Referring Provider Physician Assistant; Visit Provider Physician Assistant
DX: R79.89 Other specified abnormal findings of blood chemistry (principal); E03.8 Other specified hypothyroidism
CPT/HCPCS: 80048; 84443; 84481

== ENCOUNTER → 2021-03-30 12:13 | Outpatient (CLI) | payer MEDICARE, OTHER, SELFPAY ==
[2021-03-30 14:19] LABS: BUN Creatinine Ratio 27.3 (6-22); Blood Urea Nitrogen 38 mg/dL (9-20); Calcium 9.5 mg/dL (8.4-10.2); Carbon Dioxide 27 mmol/L (22-32); Chloride 103 mmol/L (98-107); Estimated Glomerular Filt Rate 49.3 mL/min (>60); Glucose 95 mg/dL (80-110); HEMOLYSIS 17 (0-50); Potassium 4.8 mmol/L (3.4-5.1); Sodium 136 mmol/L (137-145)
== END ==
PROVIDERS: PCP Family Medicine; Referring Provider Physician Assistant; Visit Provider Physician Assistant
DX: R79.89 Other specified abnormal findings of blood chemistry (principal)
CPT/HCPCS: 36415; 80048

== ENCOUNTER → 2021-04-15 12:15 | Outpatient (CLI) | payer MEDICARE, OTHER, SELFPAY ==
[2021-04-15 14:31] LABS: Blood Urea Nitrogen 37 mg/dL (9-20); Calcium 9.4 mg/dL (8.4-10.2); Carbon Dioxide 30 mmol/L (22-32); Chloride 106 mmol/L (98-107); Estimated Glomerular Filt Rate 50.1 mL/min (>60); Glucose 134 mg/dL (80-110); HEMOLYSIS < 15 (0-50); Potassium 4.8 mmol/L (3.4-5.1); Sodium 139 mmol/L (137-145)
== END ==
PROVIDERS: PCP Family Medicine; Referring Provider Family Medicine; Visit Provider Family Medicine
DX: R06.00 Dyspnea, unspecified (principal); R60.9 Edema, unspecified; M79.89 Other specified soft tissue disorders; I10 Essential (primary) hypertension
CPT/HCPCS: 36415; 80048

== ENCOUNTER → 2021-04-16 09:24 | Outpatient (CLI) | payer MEDICARE, OTHER, SELFPAY ==
--- NOTE | 2021-04-16 10:07 | DI.CT.S_ITS ---
PROCEDURE: CT ABDOMEN PELVIS WO CON INDICATIONS: abdominal pain swelling TECHNIQUE: At the administration of oral contrast, axial sections were acquired from the lung bases to the pubic symphysis. Coronal and sagittal reformats were performed. For radiation dose reduction, the following was used: automated exposure control, adjustment of mA and/or kV according to patient size. COMPARISON: [facility], CT, CT CHEST WITHOUT CONTRAST, 08/29/2017, 14:14. FINDINGS: Image quality: Excellent. Lung bases: There is a small subpleural nodule in the right lower lobe measuring 0.4 cm on series 3, image 15 which appears unchanged compared to the prior chest CT. Mild linear scarring and atelectasis are also noted in the lung bases. Heart: Heart is normal in size. ABDOMEN: Liver: Noncontrast evaluation of the liver demonstrates no discrete mass. Gallbladder: Within normal limits without calcified gallstones. Biliary ducts: No biliary ductal dilatation. Pancreas: There is mild fatty infiltration of the pancreas. No pancreatic duct dilatation. No peripancreatic fat stranding or fluid collections. Spleen: Normal in size. Adrenal Glands: No adrenal nodules. Kidneys and Ureters: No hydronephrosis. There are 2 exophytic left renal cysts, with the largest cyst measuring up to 6.2 cm in dimension. There is dependent calcification or a calcified septation inferiorly in the cyst. Mild nonspecific perinephric stranding is demonstrated bilaterally. Stomach and Bowel: Stomach, small bowel loops, and colon are normal in caliber and wall thickness. The appendix is normal in appearance. There is colonic diverticulosis without acute diverticulitis. Peritoneum: No abnormal intraperitoneal fluid. No free air. Ventral Wall: No hernia. Abdominal Nodes: No retroperitoneal or mesenteric adenopathy by size criteria. Vessels: Aorta and inferior vena cava are normal in size. PELVIS: Pelvic Organs: Unremarkable. Bladder: There is concentric bladder wall thickening with mild associated fat stranding. Pelvic Nodes: No enlarged lymph nodes. Miscellaneous: There are bilateral small fat-containing inguinal hernias. Bones: Visualized osseous structures demonstrate no suspicious focal lesions. IMPRESSION: 1. Concentric bladder wall thickening with associated mild fat stranding suggestive of a cystitis. 2. Colonic diverticulosis without acute diverticulitis. Dictated by: Frederick aLn M.D. on 04/16/2021 at 12:30 Approved by: Frederick Lan M.D. on 04/16/2021 at 12:36
== END ==
PROVIDERS: PCP Family Medicine; Referring Provider Family Medicine; Visit Provider Family Medicine
DX: R19.00 Intra-abdominal and pelvic swelling, mass and lump, unspecified site (principal); R10.9 Unspecified abdominal pain; R91.1 Solitary pulmonary nodule; K57.90 Diverticulosis of intestine, part unspecified, without perforation or abscess without bleeding; K40.20 Bilateral inguinal hernia, without obstruction or gangrene, not specified as recurrent
CPT/HCPCS: 74176

== ENCOUNTER → 2021-05-28 13:43 | Outpatient (CLI) | payer MEDICARE, OTHER, SELFPAY ==
[2021-05-28 14:26] LABS: COVID19 -Nasal RAPID Negative (Negative)
== END ==
PROVIDERS: PCP Family Medicine; Visit Provider Family Medicine Sleep Medicine
DX: Z20.822 Contact with and (suspected) exposure to COVID-19 (principal)
CPT/HCPCS: 87635

== ENCOUNTER → 2021-05-28 13:50 | Outpatient (CLI) | payer MEDICARE, OTHER, SELFPAY ==
[2021-05-28 15:05] LABS: BUN Creatinine Ratio 22.7 (6-22); Blood Urea Nitrogen 32 mg/dL (9-20); Calcium 9.1 mg/dL (8.4-10.2); Carbon Dioxide 30 mmol/L (22-32); Chloride 105 mmol/L (98-107); Estimated Glomerular Filt Rate 51 mL/min (>60); Glucose 150 mg/dL (80-110); HEMOLYSIS 18 (0-50); Potassium 4.3 mmol/L (3.4-5.1); Sodium 139 mmol/L (137-145)
== END ==
PROVIDERS: PCP Family Medicine; Referring Provider Internal Medicine Cardiovascular Disease; Visit Provider Internal Medicine Cardiovascular Disease
DX: R06.00 Dyspnea, unspecified (principal); R53.83 Other fatigue; R60.9 Edema, unspecified; R93.1 Abnormal findings on diagnostic imaging of heart and coronary circulation; Z20.822 Contact with and (suspected) exposure to COVID-19
CPT/HCPCS: 36415; 80048; 87635; C9803

== ENCOUNTER → 2021-05-31 11:53 | Outpatient (CLI) | payer MEDICARE, OTHER, SELFPAY ==
--- NOTE | 2021-05-31 11:55 | DI.NM.S_ITS ---
PROCEDURE: NM URVASHI PERF SPECT R&S PHARM Rest and pharmacological stress myocardial perfusion SPECT with gated imaging and ejection fraction RADIOPHARMACEUTICAL: 23.4 mCi Tc-99m tetrafosmin IV at rest and 25.0 mCi Tc-99m tetrafosmin IV at peak effect of pharmacological stress. [id number] was performed. INDICATIONS: Abnormal findings on diagnostic imaging of heart TECHNIQUE: Radiopharmaceutical was injected at peak stress test, and also at rest. SPECT images were obtained. SPECT myocardial perfusion images were displayed in short axis, horizontal long axis, and vertical long axis views. Gated images were reviewed using Electric Imp software. COMPARISON: None. CARDIAC STRESS: A pharmacologic stress test was performed under the supervision of an attending staff, using an infusion of Regadenoson. Hemodynamic data: There is normal blood pressure and heart rate response to pharmacologic stress. Symptoms: The patient denied anginal chest pain. EKG: No diagnostic changes of ischemia; no ectopy. FINDINGS: Raw data: There is good myocardial uptake of radiotracer. No significant motion artifacts. Yewd-jw-mghjo ratio is 0.40 (normal is less than 0.38 for tetrafosmin tracer). Left ventricle function: Gated images demonstrate normal left ventricular wall thickening. No segmental wall motion abnormalities. No transient ischemic dilation; TID is 0.98 (normal less than 1.3). Left ventricle resting end diastolic volume is 85 mL. Left ventricle stress ejection fraction is 69% ; normal range is above 45%. Myocardial perfusion: There is a large size, moderate to severe intensity basal to mid inferior and inferolateral wall defect that is partially reversible. There is associated hypokinesis in the same area. IMPRESSION: Abnormal study. Large size, moderate to severe intensity partially reversible inferior and inferolateral wall defect with associated hypokinesis concerning for prior infarct with dev-infarct ischemia. Results discussed with Vidya CUEVAS at the office of Dr. Simmons, ordering provider. Dictated by: Shahnaz Dunham D.O. on 06/01/2021 at 16:14 Approved by: Shahnaz Dunham D.O. on 06/01/2021 at 16:18
== END ==
PROVIDERS: PCP Family Medicine; Referring Provider Internal Medicine Cardiovascular Disease; Visit Provider Internal Medicine Cardiovascular Disease
DX: R06.00 Dyspnea, unspecified (principal); R53.83 Other fatigue; R60.9 Edema, unspecified; R93.1 Abnormal findings on diagnostic imaging of heart and coronary circulation; R94.39 Abnormal result of other cardiovascular function study
CPT/HCPCS: 78452; 93017; A9502; J2785

== ENCOUNTER → 2021-06-24 11:10 | Outpatient (CLI) | payer MEDICARE, OTHER, SELFPAY ==
[2021-06-24 14:41] LABS: Prostate Specific Antigen 3.61 ng/mL (0.10-4.00)
== END ==
PROVIDERS: PCP Family Medicine; Referring Provider Specialist; Visit Provider Specialist
DX: R97.20 Elevated prostate specific antigen [PSA] (principal)
CPT/HCPCS: 36415; 84153

== ENCOUNTER → 2021-07-07 12:15 | Outpatient (CLI) | payer MEDICARE, OTHER, SELFPAY ==
--- NOTE | 2021-07-07 12:16 | DI.MRI.S_ITS ---
PROCEDURE: MR PELIS WO/W CON INDICATIONS: Prostate CA TECHNIQUE: Coronal HASTE, axial T1 FSE with fat saturation, 3-plane nonbreath-hold T2 FSE. After the administration of contrast, dynamic axial, delayed axial and coronal VIBE or 2-D FLASH with fat saturation through the pelvis. Optional diffusion weighted imaging and ADC may be performed. COMPARISON: [facility], CT, CT ABDOMEN PELVIS WO CON, 04/16/2021, 10:10. FINDINGS: Image quality: Diffusion weighted and dynamic contrast enhanced images are diagnostic. Prostate: Gland size is 4.9 x 4.2 x 3 cm; ellipsoid gland volume is 32 mL. No significant foci of intrinsic T1 hyperintensity to suggest hemorrhage. Multiple BPH nodules. There is median lobe hypertrophy. Lesion size(s): Lesion 1: 2.2 x 1.5 cm, (5/16). This measures 2.6 cm in the craniocaudal dimension, (6/16). Lesion 2: 0.8 x 0.7 cm, (5/13). Lesion location(s) (sector): Lesion 1: Left apex/mid gland peripheral zone Lesion 2: Right mid gland peripheral zone Lesion description: Lesion 1: Oval Lesion 2: Oval T2 weighted imaging (T2WI) morphology score: Lesion 1: 5 Lesion 2: 4 Diffusion weighted imaging (DWI) morphology score: Lesion 1: 5 Lesion 2: 3 Dynamic contrast enhancement (DCE): Lesion 1: Absent Lesion 2: Absent Lesion PI-RADS score: Lesion 1: PI-RADS 5 Lesion 2: PI-RADS 3 Genitourinary system: There is intrinsic T1 hyperintense signal in the left seminal vesicle which is asymmetric compared to the right. The left seminal vesicle is prominent. Bladder wall appears mildly trabeculated. Distal ureters are non distended. Bowel and peritoneum: No pathologic free pelvic fluid. Inferior colon and small bowel loops are normal in caliber. Nodes and vessels: No pelvic or inguinal adenopathy by size criteria. Iliac vessels are normal in caliber. Soft tissues: Fat containing inguinal hernias. Bones: Marrow demonstrates normal overall signal, without lesions to suggest metastases. IMPRESSION: 1. Left apex/mid gland peripheral zone observation measuring 2.2 cm. PI-RADS 5. 2. Right mid gland peripheral zone observation measuring 0.8 cm. PI-RADS 3. 3. No enlarged lymph nodes identified. Dictated by: Edwin Carroll M.D. on 07/07/2021 at 15:48 Approved by: Edwin Carroll M.D. on 07/07/2021 at 16:03
== END ==
PROVIDERS: PCP Family Medicine; Referring Provider Specialist; Visit Provider Specialist
DX: D40.0 Neoplasm of uncertain behavior of prostate (principal)
CPT/HCPCS: 72197; A9579

== ENCOUNTER → 2021-08-23 11:40 | Outpatient (CLI) | payer MEDICARE, OTHER, SELFPAY ==
--- NOTE | 2021-08-23 11:43 | DI.CT.S_ITS ---
PROCEDURE: CT CHEST ABD PEL W CON INDICATIONS: Mets Prostae CA TECHNIQUE: After the administration of oral and intravenous contrast, axial sections acquired from the supraclavicular neck to the pubic symphysis. Coronal and sagittal reformats were performed. For radiation dose reduction, the following was used: automated exposure control, adjustment of mA and/or kV according to patient size. COMPARISON: [facility], CT, CT ABDOMEN PELVIS WO CON, 04/16/2021, 10:10. [facility], CT, CT CHEST W CON, 05/07/2020, 11:53. [facility], CT, CT CHEST WITHOUT CONTRAST, 08/29/2017, 14:14. FINDINGS: Image quality: Excellent. CHEST: Lower Neck: No enlarged lymph nodes. Thyroid: Within normal limits. Axillae: No enlarged lymph nodes. Chest Wall: Unremarkable. Lungs and Airways: 5 mm pleural-based nodule in the inferior margin of the right upper lobe (image 145/series 5) not significantly changed. Stable 5 mm posterior right middle lobe nodule (image 172/series 5). Stable 5 mm subpleural nodule in the right lower lobe (image 187/series 5). Increased conspicuity 6 mm medial right lower lobe nodule seen on image 169/series 5. This was of similar size previously but less dense. There are two 3 mm left lower lobe pulmonary nodules seen on image 146/series 5 which are not significantly changed in size; however, they do appear slightly more dense and conspicuous. No new pulmonary nodules or masses. No septal thickening or nodularity. Mild bibasilar atelectasis. Linear opacities along the periphery of the inferior right middle lobe likely representing atelectasis or scarring. There is minimal bronchiectasis in the vicinity. Pleura: No pneumothorax or pleural effusions. Heart: Heart size is normal. No pericardial effusion. Mild atherosclerotic calcifications of the coronary arteries. Thoracic Vessels: The aorta and pulmonary arteries demonstrate normal size. Mild scattered atherosclerotic calcifications. Mediastinum and Jane: No enlarged lymph nodes. Esophagus: No wall thickening. No hiatal hernia. ABDOMEN: Liver: Unremarkable. Gallbladder: Gallbladder is unremarkable. Biliary ducts: Unremarkable. Pancreas: Mild fatty infiltration of the pancreas. No peripancreatic stranding. Spleen: Unremarkable. Adrenal Glands: Unremarkable. Kidneys and Ureters: Right kidney is stable in size without hydronephrosis. No significant perinephric stranding. Right ureter is normal in course and caliber. Redemonstration of 2 exophytic cyst within the left kidney. Largest measures 6.2 cm in diameter (image 65/series 2). Stable appearance of dependent calcification or a calcified septation inferiorly within the cyst. The left ureter is also normal in course and caliber. No ureteral stones seen. Stomach and Bowel: Stomach, small bowel loops, and colon are unremarkable. Colonic diverticulosis without evidence for acute diverticulitis. Moderate fecal burden seen throughout the imaged colon. Appendix is not seen; however, no secondary findings acute appendicitis. Peritoneum: No abnormal intraperitoneal fluid. No free air. Ventral Wall: No hernia. Abdominal Nodes: No retroperitoneal or mesenteric adenopathy by size criteria. Vessels: Aorta and inferior vena cava are normal in size. PELVIS: Pelvic Organs: Prostate gland is prominent measuring approximately 5.0 x 4.0 cm in axial cross-sectional dimension. Bladder: There is minimal circumferential urinary bladder wall thickening which may be related to incomplete distention; however, cystitis may have a similiar appearance. Pelvic Nodes: Prominent right pelvic sidewall lymph node measuring 1.7 x 0.8 cm in size. This is seen on image 109/series 2. Miscellaneous: Bilateral fat containing inguinal hernias without acute inflammation. Inguinal hernias larger on the left. Bones: No acute compression fractures. No suspicious osseous lesions. IMPRESSION: 1. Multiple small bilateral pulmonary nodules measuring up to 6 mm in size. These have remained stable in size and appearance with exception of a few nodules which have increased in conspicuity and density compared to the prior study. Overall, size is stable. These are noted in the medial right lower lobe and left lower lobe. Please see above for details. Otherwise, no evidence for new metastatic disease to the chest. No adenopathy. 2. Prominent prostate gland as before. Stable prominent anterior right pelvic sidewall lymph node. No evidence for new lymphadenopathy in the abdomen or pelvis. 3. Colonic diverticulosis without acute diverticulitis. 4. Stable appearance of 2 exophytic left renal cysts. 5. Fat containing bilateral inguinal hernias without acute inflammation. 6. Atherosclerosis. 7. Mild circumferential urinary bladder wall thickening greater than expected for degree of decompression. This may be related to cystitis. Recommend clinical and laboratory correlation. Dictated by: Lenin Woodward M.D. on 08/23/2021 at 21:29 Approved by: Lenin Woodward M.D. on 08/23/2021 at 22:29
[2021-08-23 12:34] LABS: BUN Creatinine Ratio 19.7 (6-22); Blood Urea Nitrogen 26 mg/dL (9-20); Calcium 8.9 mg/dL (8.4-10.2); Carbon Dioxide 25 mmol/L (22-32); Chloride 107 mmol/L (98-107); Estimated Glomerular Filt Rate 55 mL/min (>60); Glucose 144 mg/dL (80-110); HEMOLYSIS < 15 (0-50); Potassium 4.3 mmol/L (3.4-5.1); Sodium 139 mmol/L (137-145)
== END ==
PROVIDERS: PCP Family Medicine; Referring Provider Specialist; Visit Provider Specialist
DX: Z01.812 Encounter for preprocedural laboratory examination (principal); C61 Malignant neoplasm of prostate; R91.8 Other nonspecific abnormal finding of lung field; K57.90 Diverticulosis of intestine, part unspecified, without perforation or abscess without bleeding; N28.1 Cyst of kidney, acquired; K40.20 Bilateral inguinal hernia, without obstruction or gangrene, not specified as recurrent
CPT/HCPCS: 36415; 71260; 74177; 80048; Q9967

== ENCOUNTER → 2021-09-08 09:48 | Outpatient (CLI) | payer MEDICARE, OTHER, SELFPAY ==
--- NOTE | 2021-09-08 09:50 | DI.NM.S_ITS ---
PROCEDURE: NM BONE SCAN WHOLE BODY RADIOPHARMACEUTICAL: 21.6 mCi Tc-99m MDP IV. INDICATIONS: Mets- Prostate CA TECHNIQUE: Delayed whole-body scintigrams were obtained approximately 3-4 hours after intravenous injection of radiotracer. Anterior and posterior views were acquired from vertex to feet. Additional left and right oblique views of the thoracic cage and pelvis were obtained. COMPARISON: [facility], CT, CT ABDOMEN PELVIS WO CON, 04/16/2021, 10:10. [facility], CT, CT CHEST ABD PEL W CON, 08/23/2021, 13:16. FINDINGS: No lesions are identified in skull, sternum, clavicles, scapulae, ribs, bony pelvis, and visualized shafts of the long bones. Increased activity in the paranasal area is likely secondary to paranasal sinus disease. There is multiple foci of increased uptake in thoracic spine at the costovertebral junctions bilaterally, compatible with costovertebral arthritis. Low-level increased uptake in cervical, thoracic and lumbar spine is most likely secondary to degenerative disc and facet disease; early metastasis to spine could be obscured by degenerative changes. There are foci of increased periarticular activity compatible with degenerative/arthritic changes. IMPRESSION: No definitive scintigraphic findings to suggest osseous metastases. Dictated by: Demetrio Ruiz M.D. on 09/08/2021 at 16:48 Approved by: Demetrio Ruiz M.D. on 09/08/2021 at 16:51
[2021-09-08 11:51] LABS: TSH w/ Reflex to FT4 3.19 uIU/mL (0.47-4.68)
== END ==
PROVIDERS: Physician Assistant; PCP Family Medicine; Referring Provider Specialist; Visit Provider Specialist
DX: E03.9 Hypothyroidism, unspecified (principal); C61 Malignant neoplasm of prostate
CPT/HCPCS: 36415; 78306; 84443; A9503

== ENCOUNTER → 2021-10-20 09:00 | Outpatient (CLI) | payer MEDICARE, OTHER, SELFPAY ==
[2021-10-20 10:34] LABS: Alanine Aminotransferase 24 IU/L (<50); Albumin 3.9 g/dL (3.5-5.0); Albumin Globulin Ratio 1.2 (1.0-2.8); Alkaline Phosphatase 59 U/L (38-126); Aspartate Aminotransferase 27 IU/L (17-59); BUN Creatinine Ratio 21.7 (6-22); Bilirubin Total 0.8 mg/dL (0.2-1.3); Blood Urea Nitrogen 31 mg/dL (9-20); Carbon Dioxide 28 mmol/L (22-32); Chloride 103 mmol/L (98-107); Cholesterol 145 mg/dL (140-199); Estimated Glomerular Filt Rate 50 mL/min (>60); Globulin 3.3 g/dL (1.7-4.1); Glucose 132 mg/dL (80-110); HDL Cholesterol 55 mg/dL (40-60); HEMOLYSIS < 15 (0-50); LDL Cholesterol Calculated 80 mg/dL (<100); Potassium 4.3 mmol/L (3.4-5.1); Sodium 138 mmol/L (137-145); Total Protein 7.2 g/dL (6.3-8.2); Triglycerides 52 mg/dL (35-150)
== END ==
PROVIDERS: PCP Family Medicine; Referring Provider Nurse Practitioner; Visit Provider Nurse Practitioner
DX: C61 Malignant neoplasm of prostate (principal); R06.00 Dyspnea, unspecified; R93.1 Abnormal findings on diagnostic imaging of heart and coronary circulation; Z80.42 Family history of malignant neoplasm of prostate; I25.10 Atherosclerotic heart disease of native coronary artery without angina pectoris
CPT/HCPCS: 36415; 80053; 80061; 96402; 99215; J9217

== ENCOUNTER → 2022-01-05 09:19 | Outpatient (CLI) | payer MEDICARE, OTHER, SELFPAY ==
--- NOTE | 2022-01-05 09:20 | DI.RAD.S_ITS ---
PROCEDURE: XR DEXA AXIAL SKELETON INDICATIONS: ADT therapy COMPARISON: None. FINDINGS: This blank DEXA report has been sent in error by the PACS system. The correct and complete report will be forthcoming in 1-2 days. Thank you for your patience and understanding. Dictated by: Demetrio Ruiz M.D. on 01/05/2022 at 11:38 Approved by: Demetrio Ruiz M.D. on 01/05/2022 at 11:39
[2022-01-05 11:19] LABS: Prostate Specific Antigen 0.071 ng/mL (0.10-4.00)
== END ==
PROVIDERS: PCP Family Medicine; Referring Provider Specialist; Visit Provider Specialist
DX: C61 Malignant neoplasm of prostate (principal); Z13.820 Encounter for screening for osteoporosis; M85.852 Other specified disorders of bone density and structure, left thigh; T38.7X5A Adverse effect of androgens and anabolic congeners, initial encounter; N40.3 Nodular prostate with lower urinary tract symptoms; Z80.42 Family history of malignant neoplasm of prostate
CPT/HCPCS: 36415; 77080; 84153

== ENCOUNTER → 2022-04-04 12:26 | Outpatient (CLI) | payer MEDICARE, OTHER, SELFPAY ==
[2022-04-04 14:41] LABS: Alanine Aminotransferase 30 IU/L (<50); Albumin Globulin Ratio 1.2 (1.0-2.8); Alkaline Phosphatase 62 U/L (38-126); Aspartate Aminotransferase 33 IU/L (17-59); BUN Creatinine Ratio 25.5 (6-22); Bilirubin Total 0.5 mg/dL (0.2-1.3); Blood Urea Nitrogen 39 mg/dL (9-20); Calcium 9.1 mg/dL (8.4-10.2); Carbon Dioxide 26 mmol/L (22-32); Chloride 103 mmol/L (98-107); Estimated Glomerular Filt Rate 46 mL/min (>60); Globulin 3.3 g/dL (1.7-4.1); Glucose 108 mg/dL (80-110); HEMOLYSIS < 15 (0-50); Potassium 4.5 mmol/L (3.4-5.1); Sodium 138 mmol/L (137-145); Total Protein 7.3 g/dL (6.3-8.2)
== END ==
PROVIDERS: PCP Family Medicine; Referring Provider Nurse Practitioner; Visit Provider Nurse Practitioner
DX: R60.0 Localized edema (principal)
CPT/HCPCS: 36415; 80053

== ENCOUNTER → 2022-04-18 11:29 | Outpatient (CLI) | payer MEDICARE, OTHER, SELFPAY ==
[2022-04-18 12:56] LABS: Appearance Urine UA CLEAR; Bilirubin Urine UA NEGATIVE (NEGATIVE); Color Urine UA YELLOW; Glucose Urine UA NEGATIVE (Negative); Ketones Urine UA NEGATIVE (NEGATIVE); Leukocyte Esterase Urine UA NEGATIVE (NEGATIVE); Nitrite Urine UA NEGATIVE (Negative); Occult Blood Urine UA NEGATIVE (Negative); Protein Urine UA NEGATIVE (Negative); Urobilinogen Urine UA 0.2 E.U./dL (0.2)
[2022-04-18 13:37] LABS: Bacteria Urine None Seen; RBC Urine None Seen (0-5/HPF); WBC Urine None Seen (0-5/HPF)
[2022-04-21 21:12] LABS: Prostate Specific Antigen < 0.064 ng/mL (0.10-4.00)
== END ==
PROVIDERS: PCP Family Medicine; Referring Provider Specialist; Visit Provider Specialist
DX: C61 Malignant neoplasm of prostate (principal); N40.1 Benign prostatic hyperplasia with lower urinary tract symptoms; R39.16 Straining to void
CPT/HCPCS: 36415; 81001; 84153

== ENCOUNTER → 2022-06-14 10:05 | Outpatient (CLI) | payer MEDICARE, OTHER, SELFPAY ==
[2022-06-14 12:39] LABS: Add Manual Diff / Slide Review NO; Basophils Absolute Auto 0 /uL (0-100); Basophils Percent Auto 0.5 % (0-2); Eosinophils Absolute Auto 200 /uL (0-450); Eosinophils Percent Auto 2.5 % (2-4); Hematocrit 37.3 % (41-53); Hemoglobin 13.1 g/dL (13.5-17.5); Lymphocytes Absolute Auto 900 /uL (1100-4500); Lymphocytes Percent Auto 14.1 % (25-40); Mean Corpuscular HGB Conc 35.2 % (30-36); Mean Corpuscular Hemoglobin 34.7 PG (26-34); Mean Corpuscular Volume 98.7 fL (80-100); Monocytes Absolute Auto 600 /uL (0-900); Monocytes Percent Auto 9.5 % (3-14); Neutrophils Absolute Auto 4500 /uL (1500-7000); Neutrophils Percent Auto 73.4 % (50-75); Platelet Count 149 X10^3/uL (150-400); Red Blood Cell Count 3.78 X10^6/uL (4.5-5.9); Red Cell Distribution Width 13.9 % (11.6-14.8); White Blood Cell Count 6.1 X10^3/uL (4.5-11.0)
[2022-06-14 13:01] LABS: Alanine Aminotransferase 30 IU/L (<50); Albumin 4.1 g/dL (3.5-5.0); Albumin Globulin Ratio 1.2 (1.0-2.8); Alkaline Phosphatase 56 U/L (38-126); Aspartate Aminotransferase 35 IU/L (17-59); BUN Creatinine Ratio 22.4 (6-22); Bilirubin Total 0.7 mg/dL (0.2-1.3); Blood Urea Nitrogen 41 mg/dL (9-20); Carbon Dioxide 28 mmol/L (22-32); Chloride 103 mmol/L (98-107); Estimated Glomerular Filt Rate 37 mL/min (>60); Globulin 3.5 g/dL (1.7-4.1); Glucose 122 mg/dL (80-110); HEMOLYSIS < 15 (0-50); Potassium 4.3 mmol/L (3.4-5.1); Sodium 139 mmol/L (137-145); Total Protein 7.6 g/dL (6.3-8.2)
== END ==
PROVIDERS: PCP Family Medicine; Referring Provider Family Medicine; Visit Provider Family Medicine
DX: I10 Essential (primary) hypertension (principal); E03.9 Hypothyroidism, unspecified; M79.89 Other specified soft tissue disorders
CPT/HCPCS: 36415; 80053; 84443; 85025

== ENCOUNTER → 2022-07-07 11:49 | Outpatient (CLI) | payer MEDICARE, OTHER, SELFPAY ==
[2022-07-07 13:28] LABS: Prostate Specific Antigen < 0.064 ng/mL (0.10-4.00)
== END ==
PROVIDERS: PCP Family Medicine; Referring Provider Specialist; Visit Provider Specialist
DX: C61 Malignant neoplasm of prostate (principal)
CPT/HCPCS: 36415; 84153

== ENCOUNTER 2022-08-22 09:20 | Day surgery (SDC) | payer MEDICARE, OTHER, SELFPAY ==
--- NOTE | 2022-08-22 09:33 | P.HP_ITS ---
History of Present Illness History of Present Illness Date Patient Seen: 08/22/22 Time Patient Seen: 09:34 Chief complaint: Screening Colonoscopy Narrative: History of colon polyps. Reports at age 66 he had as many as 12 and 1 colonoscopy. Last scope was 2 years ago. No symptoms. This last year spent in treatment of prostate cancer. He is tracking his medical issues in relationship to exposure to agent orange. [facility] Medical History Asthma Chronic cough Colon polyps (05/13/08) Diverticulosis, sigmoid (05/13/08) Family history of malignant neoplasm of prostate Lesion of nose Lower urinary tract symptoms (LUTS) Mumps (~195) Nodular prostate with lower urinary tract symptoms Peripheral neuropathy Prostate cancer PTSD (post-traumatic stress disorder) (1965) Rotator cuff injury (2008) Shoulder pain (2008) Skin tags, multiple acquired Sleep apnea Subareolar mass of left breast Subclinical hypothyroidism Urge incontinence Surgical History Anesthesia H/O wisdom tooth extraction History of colonoscopy with polypectomy (05/13/08) History of colonoscopy with polypectomy (11/09/15) History of local excision of skin lesion History of right cataract surgery (10/31/17) History of surgery of head (12/2011) Status post arthroscopy (1997) Status post hernia repair (10/2006) Status post surgical removal of nail matrix of toe Family History Brother Age: 93 Skin cancer Father Dementia Mental health problem Stroke Prostate cancer Grandfather Mental health problem Grandmother Heart disease Heart attack Mother Gallbladder disease Stroke Breast cancer Grandfather No problems noted. Grandmother No problems noted. Sister No problems noted. Social History marital status: number of children: 4 household members: spouse Smoking Status: Former smoker (QUIT 02/17/81) alcohol intake: current (MODERATE ) substance use type: does not use Meds Home Medications and Allergies Home Medications Medication Instructions Recorded Confirmed Type Fish Oil (#FISH OIL) 1,000 iu PO Q DAY ##0 09/16/10 08/22/22 History Coenzyme Q10 (#COQ(10)10) 10 mg PO QDAY ##0 05/30/12 08/22/22 History Ginkgo Biloba (#GINKGO BILOBA PLUS) 1 cap PO QDAY ##0 05/30/12 08/22/22 History MULTIVITAMIN (#MULTIPLE VITAMINS) 1 cap PO QDAY ##0 05/30/12 07/20/22 History albuterol sulfate 90 mcg/actuation 2 puff inhalation Q4-6H PRN 10/17/17 08/22/22 History aerosol inhaler (ProAir HFA) Wheezing tiotropium bromide 1.25 2 puff inhalation DAILY 10/17/17 08/22/22 History mcg/actuation mist for inhalation (Spiriva Respimat) Disabled Parking Permit #1 ea 06/12/18 07/20/22 Rx albuterol sulfate 2.5 mg/3 mL 2.5 mg (3 mL) continuous 10/30/18 08/22/22 Rx (0.083 %) solution for nebulization nebulization QID PRN PRN Asthma #75 mL vitamin B complex (B 1 tab PO DAILY 04/08/21 08/22/22 History Complex-Vitamin B12 tablet) bicalutamide 50 mg tablet (Casodex) 50 mg PO DAILY #30 tabs 10/29/21 08/22/22 Rx benzonatate 100 mg capsule 100 mg PO TID PRN cough #30 caps 03/10/22 08/22/22 Rx tamsulosin 0.4 mg capsule (Flomax) 0.8 mg PO QDAY #180 caps 03/10/22 08/22/22 Rx aspirin 81 mg tablet,delayed 81 mg PO DAILY #90 tabs 03/29/22 08/22/22 Rx release (Adult Aspirin Regimen) levothyroxine 50 mcg tablet 50 mcg PO DAILY #90 tabs 03/29/22 08/22/22 Rx cholecalciferol (vitamin D3) 10 10 mcg PO DAILY 04/20/22 08/22/22 History mcg (400 unit) capsule fluticasone propionate 230 2 puff inhalation BID 05/02/22 08/22/22 History mcg-salmeterol 21 mcg/actuation HFA inhaler (Advair HFA) sertraline 100 mg tablet 100 mg PO .HS #90 tabs 05/02/22 08/22/22 Rx furosemide 20 mg tablet 60 mg PO DAILY #270 tabs 07/13/22 08/22/22 Rx gabapentin 300 mg capsule 300 mg PO TID #270 caps 07/13/22 08/22/22 Rx polyethylene glycol 3350 17 17 g PO QDAY #1,530 grams 07/13/22 08/22/22 Rx gram/dose oral powder (Miralax) Allergies Allergy/AdvReac Type Severity Reaction Status Date / Time sulfadiazine [SULFADIAZINE] Allergy Mild CHILDHOOD Verified 07/20/22 10:37 ALLERGY Review of Systems Review of Systems ROS: Yes All systems reviewed with the patient and are negative except as otherwise documented Exam Const General: comfortable and anxious Nutritional Appearance: overweight Orientation: alert, awake and oriented x3 HENMT Head: normocephalic and atraumatic Eyes Sclera: sclerae normal Neck Neck: trachea midline Resp Effort & Inspection: normal respiratory effort and able to speak in complete sentences GI Inspection: obesity Palpation: soft Skin General: atrophy Neuro Cognition: normal cognition Speech: speech normal Psych Mental Status: mental status grossly normal Judgment: judgment good Assessment & Plan Assessment & Plan narrative: h/o colon polyps plan: colonoscopy under MAC Time Spent With Patient Time with patient: less than 30 minutes
[2022-08-22 09:35] VITALS: BP 139/87; PULSE 90; RESP 18; TEMP 36.3; O2SAT 95; BMI 37.5
[2022-08-22] MEDS: LACTATED RINGERS 1,000 ML 100 ML IV (09:52)
--- NOTE | 2022-08-22 10:24 | PM.OP.COLON ---
Operative Date/Time/Diagnoses Date of procedure: 08/22/22 Time of procedure: 10:24 Pre-op diagnosis: History of colon polyps Post-op diagnosis: same Procedure & Clinicians Study performed: Colonoscopy under MAC Same procedure as scheduled: Yes Indications: History of colon polyps Surgeon: Kayla Persaud Procedure Notes Procedure in detail: Preop diagnosis: History of colon polyps Postop diagnosis: Same Operative procedure: Colonoscopy under MAC Surgeon: Kaci Persaud MD Findings: Mild, small diverticulosis of the descending colon, no polyps. Procedure: Patient placed in a lateral position. Rectal exam performed showing normal tone no masses. Colonoscope inserted into the rectum and advanced to ileocecal valve with minimal difficulty. Insufflation and extraction scope and the above findings. Impression: Mild small diverticuli of the descending colon, no polyps Plan: Repeat colonoscopy in 5 years unless otherwise indicated by change in clinical condition Findings: divertiulosis Specimen(s): none sent Complications: none Post-procedure Recommendations: Colonoscopy in 5 years Follow up: as needed Disposition: PACU
[2022-08-22 10:26] VITALS: BP 93/58; PULSE 76; RESP 12; TEMP 37.1; O2SAT 92
[2022-08-22 10:33] VITALS: BP 103/71; PULSE 87; RESP 15; O2SAT 96
[2022-08-22 10:38] VITALS: BP 113/73; PULSE 89; RESP 17; O2SAT 96
[2022-08-22 10:41] VITALS: BP 115/76; PULSE 85; RESP 20; TEMP 36.6; O2SAT 96
== END 2022-08-22 12:21 | disposition home or self-care (01) ==
PROVIDERS: PCP Family Medicine; Referring Provider Surgery; Visit Provider Surgery
PROC: 0DJD8ZZ Inspection of Lower Intestinal Tract, Via Natural or Artificial Opening Endoscopic (ICD-10-PCS; CPT 45378; principal; 2022-08-22 10:15)
DX: K57.90 Diverticulosis of intestine, part unspecified, without perforation or abscess without bleeding (principal); Z86.010 Personal history of colon polyps; Z12.11 Encounter for screening for malignant neoplasm of colon
CPT/HCPCS: 45378; J2704

== ENCOUNTER → 2022-10-31 11:45 | Outpatient (CLI) | payer MEDICARE, OTHER, SELFPAY ==
[2022-10-31 13:43] LABS: BUN Creatinine Ratio 19.7 (6-22); Blood Urea Nitrogen 28 mg/dL (9-20); Calcium 9.6 mg/dL (8.4-10.2); Carbon Dioxide 25 mmol/L (22-32); Chloride 104 mmol/L (98-107); Estimated Glomerular Filt Rate 50 mL/min (>60); Glucose 109 mg/dL (80-110); HEMOLYSIS < 15 (0-50); Potassium 4.6 mmol/L (3.4-5.1); Sodium 137 mmol/L (137-145)
[2022-10-31 13:56] LABS: Hemoglobin A1C% w Est Avg Glu 5.6 % (4.0-6.0)
[2022-10-31 14:21] LABS: Prostate Specific Antigen < 0.064 ng/mL (0.10-4.00)
== END ==
PROVIDERS: PCP Family Medicine; Referring Provider Specialist; Visit Provider Specialist
DX: R73.09 Other abnormal glucose (principal); C61 Malignant neoplasm of prostate; N40.1 Benign prostatic hyperplasia with lower urinary tract symptoms; R39.9 Unspecified symptoms and signs involving the genitourinary system; R39.16 Straining to void
CPT/HCPCS: 36415; 80048; 83036; 84153

== ENCOUNTER → 2022-11-25 16:40 | Outpatient (CLI) | payer MEDICARE, OTHER, SELFPAY ==
--- NOTE | 2022-11-25 16:43 | DI.RAD.S_ITS ---
PROCEDURE: XR CHEST 2V INDICATIONS: right lower rib pain after fall TECHNIQUE: 2 views of the chest were acquired. COMPARISON: [facility], CT, CT CHEST ABD PEL W CON, 08/23/2021, 13:16. [facility], CR, XR CHEST 2 VIEWS, 09/01/2022, 15:48. [facility], CR, XR CHEST 2V, 04/28/2020, 11:32. FINDINGS: Surgical changes and devices: None. Lungs and pleura: An incomplete inspiratory result is noted, causing a crowded appearance to the lung markings. No focal infiltrates are seen. No pneumothorax or significant pleural effusions are seen. Mediastinum: The cardiac contours are within normal limits. The aorta demonstrates calcification and tortuosity. Bones and chest wall: In this patient with this given history, scrutiny is given to the ribs. No displaced rib fracture is seen. No suspicious bony abnormalities. Age-appropriate bony degenerative changes are seen. Accentuated thoracic kyphosis is seen. Soft tissues appear unremarkable. IMPRESSION: All on this standard plain film study, no displaced rib fracture or pneumothorax can be seen. Low lung volumes. Dictated by: Davian Lacy M.D. on 11/25/2022 at 17:12 Approved by: Davian Lacy M.D. on 11/25/2022 at 17:14
== END ==
PROVIDERS: PCP Family Medicine; Referring Provider Physician Assistant; Visit Provider Physician Assistant
DX: R07.81 Pleurodynia (principal)
CPT/HCPCS: 71046

== ENCOUNTER → 2022-12-15 12:24 | Outpatient (CLI) | payer MEDICARE, OTHER, SELFPAY ==
[2022-12-15 14:12] LABS: Appearance Urine UA CLEAR; Bilirubin Urine UA NEGATIVE (NEGATIVE); Color Urine UA YELLOW; Glucose Urine UA NEGATIVE (Negative); Ketones Urine UA NEGATIVE (NEGATIVE); Leukocyte Esterase Urine UA NEGATIVE (NEGATIVE); Nitrite Urine UA NEGATIVE (Negative); Occult Blood Urine UA NEGATIVE (Negative); Protein Urine UA NEGATIVE (Negative)
[2022-12-15 14:22] LABS: Blood Urea Nitrogen 29 mg/dL (9-20); Calcium 9.5 mg/dL (8.4-10.2); Carbon Dioxide 25 mmol/L (22-32); Chloride 106 mmol/L (98-107); Estimated Glomerular Filt Rate > 60 mL/min (>60); Glucose 151 mg/dL (80-110); HEMOLYSIS < 15 (0-50); Potassium 4.2 mmol/L (3.4-5.1); Sodium 138 mmol/L (137-145)
[2022-12-15 14:29] LABS: Bacteria Urine Few (2-10); RBC Urine 1-5/HPF (0-5/HPF); WBC Urine 0-1/HPF (0-5/HPF)
[2022-12-15 14:30] LABS: Culture Indicated Urine Cult Not Indicated; Squamous Epithelial Cell Urine 0-1 /HPF (0-5/HPF)
== END ==
PROVIDERS: Internal Medicine Nephrology; PCP Family Medicine; Referring Provider Specialist; Visit Provider Specialist
DX: N17.9 Acute kidney failure, unspecified (principal); N39.41 Urge incontinence; R39.9 Unspecified symptoms and signs involving the genitourinary system
CPT/HCPCS: 36415; 80048; 81001

== ENCOUNTER → 2022-12-20 08:55 | Outpatient (CLI) | payer MEDICARE, OTHER, SELFPAY ==
--- NOTE | 2022-12-20 09:46 | DI.CT.S_ITS ---
PROCEDURE: CT ABDOMEN PELVIS W CON INDICATIONS: abd pain TECHNIQUE: After the administration of oral and IV contrast, axial sections were acquired from the lung bases to the pubic symphysis. Coronal and sagittal reformats were performed. For radiation dose reduction, the following was used: automated exposure control, adjustment of mA and/or kV according to patient size. COMPARISON: [facility], CT, CT ABDOMEN PELVIS WO CON, 04/16/2021, 10:10. [facility], CT, CT CHEST ABD PEL W CON, 08/23/2021, 13:16. [facility], NM, NM BONE SCAN WHOLE BODY, 09/08/2021, 14:03. [facility], MR, MR PELVIS PROSTATE RADIATION TREATMENT PROTOCOL, 12/14/2021, 14:22. FINDINGS: Image quality: Excellent. Lung bases: Right hemidiaphragmatic eventration. Small hiatal hernia. Mild concentric thickening at the gastroesophageal junction. Heart: No significant findings. ABDOMEN: Liver: Normal size. Mild hepatic steatosis. Gallbladder: Unremarkable. Biliary ducts: Unremarkable. Pancreas: Unremarkable. Spleen: Unremarkable. Adrenal Glands: Unremarkable. Kidneys and Ureters: There are 2 simple appearing renal cysts in left kidney. No stones or hydronephrosis. Kidneys enhance symmetrically. Stomach and Bowel: Stomach, small bowel loops, and colon are normal in caliber. There is appearance of focal thickening in cecum. Diverticulosis without acute diverticulitis. Moderate amount of stool in colon. Normal appendix. Peritoneum: No abnormal intraperitoneal fluid. No free air. Ventral Wall: No hernia. Abdominal Nodes: No retroperitoneal or mesenteric adenopathy by size criteria. Vessels: Aorta and inferior vena cava are normal in size. PELVIS: Pelvic Organs: Prostate is mildly enlarged. Surgical clips are seen posterior to the prostate. Bladder: Bladder wall is thickened with pericystic stranding suggesting cystitis.. Pelvic Nodes: No enlarged lymph nodes. Miscellaneous: Bilateral fat containing inguinal hernias are seen. Bones: Old right inferior rib fractures are noted. Degenerative changes in the lower thoracic spine and lumbar spine. IMPRESSION: 1. Cecum appears thickened. Although the appearance could be caused by artifact, cannot rule out a cecal mass. Consider a short-term follow-up exam or colonoscopy for further evaluation. 2. Diverticulosis without acute diverticulitis. 3. There is bladder wall thickening and pericystic stranding consistent with cystitis. There may be superimposed chronic bladder outlet obstruction. Dictated by: Demetrio Ruiz M.D. on 12/20/2022 at 13:12 Approved by: Demetrio Ruiz M.D. on 12/20/2022 at 13:21
== END ==
PROVIDERS: PCP Family Medicine; Referring Provider Family Medicine; Visit Provider Family Medicine
DX: C61 Malignant neoplasm of prostate (principal); N28.1 Cyst of kidney, acquired; R10.2 Pelvic and perineal pain; R10.9 Unspecified abdominal pain; K44.9 Diaphragmatic hernia without obstruction or gangrene; K76.0 Fatty (change of) liver, not elsewhere classified; K57.90 Diverticulosis of intestine, part unspecified, without perforation or abscess without bleeding
CPT/HCPCS: 74177; Q9967

== ENCOUNTER → 2023-03-14 10:33 | Outpatient (CLI) | payer MEDICARE, OTHER, SELFPAY | LOC: WC 10:43 | PROVIDERS: Family Provider Family Medicine; PCP Family Medicine; Referring Provider Family Medicine; Visit Provider Surgery | DX: L97.812 Non-pressure chronic ulcer of other part of right lower leg with fat layer exposed (principal); I87.2 Venous insufficiency (chronic) (peripheral); R60.0 Localized edema; G62.9 Polyneuropathy, unspecified; Z87.891 Personal history of nicotine dependence | CPT/HCPCS: 11042; 87070; 87075; 87077; 87147; 87186; 87205; 99203; 99213 ==

== ENCOUNTER → 2023-03-21 11:39 | Outpatient (CLI) | payer MEDICARE, OTHER, SELFPAY | PROVIDERS: Family Provider Family Medicine; PCP Family Medicine; Referring Provider Family Medicine; Visit Provider Surgery | DX: L97.812 Non-pressure chronic ulcer of other part of right lower leg with fat layer exposed (principal); I87.2 Venous insufficiency (chronic) (peripheral); R60.0 Localized edema; C61 Malignant neoplasm of prostate | CPT/HCPCS: 11042; 99213 ==

== ENCOUNTER → 2023-03-28 13:12 | Outpatient (CLI) | payer MEDICARE, OTHER, SELFPAY | LOC: WC 13:13 | PROVIDERS: Family Provider Family Medicine; PCP Family Medicine; Referring Provider Family Medicine; Visit Provider Surgery | DX: L97.812 Non-pressure chronic ulcer of other part of right lower leg with fat layer exposed (principal); I87.2 Venous insufficiency (chronic) (peripheral); R60.0 Localized edema; G62.9 Polyneuropathy, unspecified | CPT/HCPCS: 15271; Q4196 ==

== ENCOUNTER → 2023-03-30 14:56 | Outpatient (CLI) | payer MEDICARE, OTHER, SELFPAY | LOC: WC 14:57 | PROVIDERS: Family Provider Family Medicine; PCP Family Medicine; Referring Provider Family Medicine; Visit Provider Surgery | DX: L97.812 Non-pressure chronic ulcer of other part of right lower leg with fat layer exposed (principal); I87.2 Venous insufficiency (chronic) (peripheral); R60.0 Localized edema | CPT/HCPCS: 29581 ==

== ENCOUNTER → 2023-04-04 15:45 | Outpatient (CLI) | payer MEDICARE, OTHER, SELFPAY | LOC: WC 15:46 | PROVIDERS: Family Provider Family Medicine; PCP Family Medicine; Referring Provider Family Medicine; Visit Provider Surgery | DX: L97.812 Non-pressure chronic ulcer of other part of right lower leg with fat layer exposed (principal); I87.2 Venous insufficiency (chronic) (peripheral); R60.0 Localized edema | CPT/HCPCS: 15271; Q4196 ==

== ENCOUNTER → 2023-04-11 14:15 | Outpatient (CLI) | payer MEDICARE, OTHER, SELFPAY | LOC: WC 14:22 | PROVIDERS: Family Provider Family Medicine; PCP Family Medicine; Referring Provider Family Medicine; Visit Provider Physician Assistant | DX: L97.812 Non-pressure chronic ulcer of other part of right lower leg with fat layer exposed (principal); I87.2 Venous insufficiency (chronic) (peripheral); R60.0 Localized edema | CPT/HCPCS: 29581 ==

== ENCOUNTER → 2023-04-17 10:08 | Outpatient (CLI) | payer MEDICARE, OTHER, SELFPAY | LOC: WC 10:11 | PROVIDERS: Family Provider Family Medicine; PCP Family Medicine; Referring Provider Family Medicine; Visit Provider Surgery | DX: L97.812 Non-pressure chronic ulcer of other part of right lower leg with fat layer exposed (principal); I87.2 Venous insufficiency (chronic) (peripheral); R60.0 Localized edema; G62.9 Polyneuropathy, unspecified; Z87.891 Personal history of nicotine dependence | CPT/HCPCS: 29581; 99213 ==

== ENCOUNTER → 2023-04-25 11:45 | Outpatient (CLI) | payer MEDICARE, OTHER, SELFPAY | PROVIDERS: Family Provider Family Medicine; PCP Family Medicine; Referring Provider Family Medicine; Visit Provider Surgery | DX: I87.2 Venous insufficiency (chronic) (peripheral) (principal); R60.0 Localized edema | CPT/HCPCS: 99213 ==

== ENCOUNTER → 2023-05-16 12:00 | Outpatient (CLI) | payer MEDICARE, OTHER, SELFPAY ==
[2023-05-16 15:36] LABS: Alanine Aminotransferase 25 IU/L (<50); Albumin 3.8 g/dL (3.5-5.0); Albumin Globulin Ratio 1.2 (1.0-2.8); Alkaline Phosphatase 64 U/L (38-126); Aspartate Aminotransferase 32 IU/L (17-59); BUN Creatinine Ratio 21.7 (6-22); Bilirubin Total 0.5 mg/dL (0.2-1.3); Blood Urea Nitrogen 34 mg/dL (9-20); Calcium 9.8 mg/dL (8.4-10.2); Carbon Dioxide 26 mmol/L (22-32); Chloride 108 mmol/L (98-107); Estimated Glomerular Filt Rate 44 mL/min (>60); Globulin 3.2 g/dL (1.7-4.1); Glucose 98 mg/dL (80-110); HEMOLYSIS < 15 (0-50); Potassium 4.6 mmol/L (3.4-5.1); Sodium 139 mmol/L (137-145)
[2023-05-18 12:13] LABS: Prostate Specific Antigen < 0.064 ng/mL (0.10-4.00)
== END ==
PROVIDERS: Family Provider Family Medicine; PCP Family Medicine; Referring Provider Specialist; Visit Provider Family Medicine
DX: I10 Essential (primary) hypertension (principal); R39.9 Unspecified symptoms and signs involving the genitourinary system; I87.2 Venous insufficiency (chronic) (peripheral)
CPT/HCPCS: 80053; 84153; 99212

== ENCOUNTER → 2023-05-16 13:33 | Outpatient (CLI) | payer MEDICARE, OTHER, SELFPAY | PROVIDERS: Family Provider Family Medicine; PCP Family Medicine; Referring Provider Family Medicine; Visit Provider Surgery | DX: I87.2 Venous insufficiency (chronic) (peripheral) (principal) | CPT/HCPCS: 99212; 99213 ==

== ENCOUNTER → 2023-11-10 14:21 | Outpatient (CLI) | payer MEDICARE, OTHER, SELFPAY ==
[2023-11-10 17:49] LABS: Prostate Specific Antigen < 0.064 ng/mL (0.10-4.00)
== END ==
PROVIDERS: Family Provider Family Medicine; PCP Family Medicine; Referring Provider Urology; Visit Provider Urology
DX: R39.9 Unspecified symptoms and signs involving the genitourinary system (principal)
CPT/HCPCS: 36415; 84153

== ENCOUNTER 2023-11-17 10:34 | Emergency (ER) | payer MEDICARE, OTHER, SELFPAY ==
[2023-11-17 10:41] VITALS: BP 124/65; PULSE 84; RESP 20; TEMP 36.8; O2SAT 98; BMI 38.7
--- NOTE | 2023-11-17 10:47 | DI.RAD.S_ITS ---
PROCEDURE: XR ANKLE LT MIN 3V INDICATIONS: fall, swelling to knee and ankle TECHNIQUE: 3 views of the ankle were acquired. COMPARISON: None. FINDINGS: Bones: Chronic avulsion injury to the lateral malleolus. Ankle mortise is normally aligned. No suspicious bony lesions. Plantar calcaneal enthesophyte. Soft tissues: Moderate tibiotalar joint effusion. Achilles tendon appears normal. Moderate ankle swelling. IMPRESSION: No acute bony abnormality. Moderate joint effusion. Internal derangement not excluded. Chronic avulsion injury to the lateral malleolus. Dictated by: Angel Luis Easley M.D. on 11/17/2023 at 11:13 Approved by: Angel Luis Easley M.D. on 11/17/2023 at 11:14
--- NOTE | 2023-11-17 10:47 | DI.RAD.S_ITS ---
PROCEDURE: XR KNEE LT 3V INDICATIONS: fall, swelling to knee and ankle TECHNIQUE: 3 views of the knee were acquired. COMPARISON: [facility], CR, XR ANKLE LT MIN 3V, 11/17/2023, 10:48. FINDINGS: Bones: There is a fracture of the fibula neck. Tricompartmental joint space narrowing with associated osteophytosis. Soft tissues: Moderate joint effusion. No suspicious soft tissue calcifications. IMPRESSION: Fracture of the fibula neck. No accompanying ankle fracture is visualized. Can consider cross-sectional imaging of the ankle to evaluate for an occult injury if nonweightbearing. Dictated by: Angel Luis Easley M.D. on 11/17/2023 at 11:14 Approved by: Angel Luis Easley M.D. on 11/17/2023 at 11:16
--- NOTE | 2023-11-17 11:27 | ED_ITS ---
HPI - Fall <Kristen Abraham PA-C - Last Filed: 11/17/23 12:40> General Chief Complaint: Fall Stated Complaint: Fell down Yesterday Twisted left leg Time Seen by Provider: 11/17/23 11:27 History of Present Illness HPI Narrative: Patient is a very pleasant 83-year-old male who presents to the emergency room department today with his . Patient is a very deconditioned gentleman, who was attempting to get into his truck yesterday when his left lower extremity gave out on him multiple times and he ended up twisting the left knee and sustaining a sudden onset of discomfort and pain and limited ability to weight bear. This happened yesterday. He has discomfort and pain in the left knee radiating down into the left ankle. Patient has substantial history of lower extremity peripheral vascular disease, nonhealing wounds, lower extremity edema, extensive history of non activity, per his he does not exercise, very limited physical activity at home, pretty much nonweightbearing is able to walk around the house but his activities of very limited any walks with a cane. Patient currently in a wheelchair at this point in time here in the [facility] area. Supportive [id number] therapy prior to being seen here in the emergency department. Related Data Home Medications Medication Instructions Recorded Confirmed Fish Oil (#FISH OIL) 1,000 iu PO Q DAY ##0 09/16/10 06/29/23 Coenzyme Q10 (#COQ(10)10) 10 mg PO QDAY ##0 05/30/12 06/29/23 Ginkgo Biloba (#GINKGO BILOBA PLUS) 1 cap PO QDAY ##0 05/30/12 06/29/23 MULTIVITAMIN (#MULTIPLE VITAMINS) 1 cap PO QDAY ##0 05/30/12 06/29/23 tiotropium bromide 1.25 2 puff inhalation DAILY 10/17/17 06/29/23 mcg/actuation mist for inhalation (Spiriva Respimat) vitamin B complex (B 1 tab PO DAILY 04/08/21 06/29/23 Complex-Vitamin B12 tablet) cholecalciferol (vitamin D3) 50 50 mcg PO DAILY 10/31/22 06/29/23 mcg (2,000 unit) capsule lycopene 10 mg capsule 40 mg PO DAILY 10/31/22 06/29/23 super snooze PO .QHS 10/31/22 06/29/23 vitamin E 100 unit tablet unit PO 10/31/22 06/29/23 spironolactone PO DAILY 03/06/23 06/29/23 Previous Rx's Medication Instructions Recorded polyethylene glycol 3350 17 17 g PO BID #3,000 grams 03/06/23 gram/dose oral powder (Miralax) aspirin 81 mg tablet,delayed 81 mg PO DAILY #90 tabs 05/01/23 release (Adult Aspirin Regimen) levothyroxine 50 mcg tablet 50 mcg PO DAILY #90 tabs 05/01/23 sertraline 100 mg tablet 100 mg PO .HS #90 tabs 05/01/23 tamsulosin 0.4 mg capsule (Flomax) 0.4 mg PO QDAY #90 caps 05/01/23 Disabled Parking Permit See Rx Instructions .Route 06/29/23 .COMPLEX #1 ea ketoconazole 2 % topical cream See Rx Instructions topical BID 09/06/23 #60 grams triamcinolone acetonide 0.1 % See Rx Instructions topical BID 09/06/23 topical cream #80 grams gabapentin 300 mg capsule 300 mg PO BID #180 caps 11/02/23 Allergies Allergy/AdvReac Type Severity Reaction Status Date / Time sulfadiazine [SULFADIAZINE] Allergy Mild CHILDHOOD Verified 06/29/23 10:19 ALLERGY Review of Systems <Kristen Abraham PA-C - Last Filed: 11/17/23 12:40> Review of Systems Narrative: Negative except as above Musculoskeletal Comments: Left knee and lower extremity pain. Integumentary/Breasts Comments: Currently the patient has a new blister that is forming on the lateral aspect of the left lower extremity. He has history of peripheral vascular disease and it sounds like he has had to be seen by wound care previously for nonhealing wounds on the right lower extremity. Patient History <Kristen Abraham PA-C - Last Filed: 11/17/23 12:40> Medical History Mild intermittent asthma (07/09/13) Elevated random blood glucose level Urge incontinence Lower urinary tract symptoms (LUTS) Prostate cancer Subclinical hypothyroidism Subareolar mass of left breast Chronic cough Sleep apnea PTSD (post-traumatic stress disorder) (1965) Peripheral neuropathy Rotator cuff injury (2008) Shoulder pain (2008) Lesion of nose Skin tags, multiple acquired Mumps (~1952) Diverticulosis, sigmoid (05/13/08) Colon polyps (05/13/08) Asthma Surgical History History of colonoscopy with polypectomy (11/09/15) History of right cataract surgery (10/31/17) History of local excision of skin lesion History of colonoscopy with polypectomy (05/13/08) Anesthesia Status post surgical removal of nail matrix of toe H/O wisdom tooth extraction History of surgery of head (12/2011) Status post hernia repair (10/2006) Status post arthroscopy (1997) Family History Brother Age: 94 Skin cancer Father Dementia Mental health problem Stroke Prostate cancer Grandfather Mental health problem Grandmother Heart disease Heart attack Mother Gallbladder disease Stroke Breast cancer Grandfather No problems noted. Grandmother No problems noted. Sister No problems noted. Social History marital status: number of children: 4 household members: spouse Smoking Status: Former smoker alcohol intake: never substance use type: does not use Smoking Status: Former smoker Substance Use Type: does not use Exam <Kristen Abraham PA-C - Last Filed: 11/17/23 12:40> Initial Vital Signs Initial Vital Signs: Vital Signs Temperature 98.3 F 11/17/23 10:41 Pulse Rate 84 11/17/23 10:41 Respiratory Rate 20 11/17/23 10:41 Blood Pressure 124/65 11/17/23 10:41 Pulse Oximetry 98 11/17/23 10:41 Oxygen Delivery Method Room Air 11/17/23 10:41 Reviewed Const General: cooperative, No in distress, No anxious and frail appearing Eyes General: Yes appearance normal, both eyes and all related structures Pupils: PERRL EOM: EOM intact bilaterally Skin General: mottling, pallor, warm and other (Patient has substantial lower extremity peripheral vascular disease.) Wounds: wounds noted (Patient has a nonhealing blister wound on the left lateral lower extremity) Neuro General: patient alert, patient awake, patient oriented x3, oriented and gait abnormal (Gait is severely impaired due to discomfort/pain/severe deconditioning) Cranial Nerves: CN's II-XI intact bilaterally Cognition: normal cognition Speech: speech normal Extrem Other: Upper extremities range of motion, pulses, cap refill, strength are preserved. Bilateral lower extremity the patient has substantial signs and symptoms of peripheral vascular disease, he has 2+ lower extremity edema. He is decreased sensation, as pulses are present but decreased, cap refill is quite delayed. Warm to touch. Left lower extremity exam. The patient has discomfort and pain in the proximal lateral fibula area. No calf pain. Moderate amount of lower extremity edema ankle swelling, ankle tenderness. Limited range of motion due to edema discomfort and pain. Patient has a Band-Aid over a blister that recently popped up on the lateral left lower extremity. No obvious deformity. No ecchymosis is noted. No soft tissue bruising is noted. Limited range of motion is noted due to deconditioning. No pain in the hip or femur area. <Mario Parker MD - Last Filed: 11/17/23 20:35> Initial Vital Signs Initial Vital Signs: Vital Signs Temperature 98.3 F 11/17/23 10:41 Pulse Rate 84 11/17/23 10:41 Respiratory Rate 20 11/17/23 10:41 Blood Pressure 124/65 11/17/23 10:41 Pulse Oximetry 98 11/17/23 10:41 Oxygen Delivery Method Room Air 11/17/23 10:41 Procedures <Kristen Abraham PA-C - Last Filed: 11/17/23 12:40> Orthopedic Splinting/Casting Injury #1: Lower Extremity Injury Location: knee (Left proximal fibula fracture) Lower Extremity Immobilizer: knee immobilizer (Patient has a walker at home) Scores <Kristen Abraham PA-C - Last Filed: 11/17/23 12:40> GCS Citation: 15 Course <Kristen Abraham PA-C - Last Filed: 11/17/23 12:40> Orders Ordered: ED Orders 11/17/23 10:47 XR ankle LT min 3V Stat XR knee LT 3V Stat Vital Signs Vital signs: Vital Signs - 8 hr 11/17/23 12:41 Temperature 98.2 F Pulse Rate 80 Respiratory Rate 18 Blood Pressure 128/72 Pulse Oximetry 98 Oxygen Delivery Method Room Air Reviewed <Mario Parker MD - Last Filed: 11/17/23 20:35> Orders Ordered: ED Orders 11/17/23 10:47 XR ankle LT min 3V Stat XR knee LT 3V Stat Vital Signs Vital signs: Vital Signs - 8 hr 11/17/23 12:41 Temperature 98.2 F Pulse Rate 80 Respiratory Rate 18 Blood Pressure 128/72 Pulse Oximetry 98 Oxygen Delivery Method Room Air MDM - Fall <Kristen Abraham PA-C - Last Filed: 11/17/23 12:40> Imaging Data Extremity x-ray #1: Radiologist's Impression: [address] [address] XRay Report Signed Patient: Willis Irwin MR#: [id number] : 1940 Acct:[id number] Age/Sex: 83 / M Date of Service: 11/17/23 Loc: ED Accession Number: [id number] Procedure: XR ankle LT min 3V Ordering Provider: Mario Parker MD PROCEDURE: XR ANKLE LT MIN 3V INDICATIONS: fall, swelling to knee and ankle TECHNIQUE: 3 views of the ankle were acquired. COMPARISON: None. FINDINGS: Bones: Chronic avulsion injury to the lateral malleolus. Ankle mortise is normally aligned. No suspicious bony lesions. Plantar calcaneal enthesophyte. Soft tissues: Moderate tibiotalar joint effusion. Achilles tendon appears normal. Moderate ankle swelling. IMPRESSION: No acute bony abnormality. Moderate joint effusion. Internal derangement not excluded. Chronic avulsion injury to the lateral malleolus. Dictated by: Angel Luis Easley M.D. on 11/17/2023 at 11:13 Approved by: Angel Luis Easley M.D. on 11/17/2023 at 11:14 Extremity x-ray #2: Radiologist's Impression: [address] [address] XRay Report Signed Patient: Willis Irwin MR#: [id number] : 1940 Acct:[id number] Age/Sex: 83 / M Date of Service: 11/17/23 Loc: ED Accession Number: [id number] Procedure: XR knee LT 3V Ordering Provider: Mario Parker MD PROCEDURE: XR KNEE LT 3V INDICATIONS: fall, swelling to knee and ankle TECHNIQUE: 3 views of the knee were acquired. COMPARISON: [facility], CR, XR ANKLE LT MIN 3V, 11/17/2023, 10:48. FINDINGS: Bones: There is a fracture of the fibula neck. Tricompartmental joint space narrowing with associated osteophytosis. Soft tissues: Moderate joint effusion. No suspicious soft tissue calcifications. IMPRESSION: Fracture of the fibula neck. No accompanying ankle fracture is visualized. Can consider cross-sectional imaging of the ankle to evaluate for an occult injury if nonweightbearing. Dictated by: Angel Luis Easley M.D. on 11/17/2023 at 11:14 Approved by: Angel Luis Easley M.D. on 11/17/2023 at 11:16 MDM Narrative Medical decision making narrative: 83-year-old male brought to the emergency department by his after he sustained an injury yesterday attempting to get into his truck. Now having extreme discomfort and pain in the left knee radiating down to the left ankle with some pain upon weight-bearing activity. Extremely deconditioned, multiple medical problems. Bilateral lower extremity peripheral vascular disease with bilateral 2+ edema, and extremely deconditioned elderly gentleman who is noncompliant on his respiratory meds. Currently in a wheelchair for ambulation due to discomfort and pain who walks with a cane at home, very limited with recent increase in falls at home. Who has a relationship with Orthopedics for Synvisc injections to his right knee to help with discomfort and pain osteoarthritis. X-rays of the left ankle and left knee show that the ankle is negative for any acute fractures show substantial wear and tear, x-ray of the left knee shows a proximal fibula fracture. With a joint effusion. The patella is intact. Mild osteoarthritis is noted as well. Patient has a walker at home, he is placed in a knee immobilizer here in the emergency room department stabilized the fibular fracture. Referred to the orthopedist on-call Weight-bearing as tolerated Tylenol for pain Supportive therapy education for peripheral vascular disease, elevation of his legs home, calf pumps, elevating the edge of his bed, wedge to help with the 2+ edema that he has to his lower extremities. I encouraged him to call his primary care doctor and establish an appointment to discuss his ongoing recent increase in falls and stability issues. Encouraged the patient to call make an appointment with Orthopedics to follow up with his proximal fibula fracture. Differential diagnosis; fall, proximal fibula fracture on the left, peripheral vascular disease, a nonhealing left lower extremity wound, noncompliant see with medications, deconditioning, recent increase in falls, Discharge Plan Departure Patient Disposition: Home Clinical Impression: Closed left fibular fracture Qualifiers: Encounter type: initial encounter Fibula location: proximal Fracture morphology: unspecified fracture morphology Qualified Code(s): S82.832A - Other fracture of upper and lower end of left fibula, initial encounter for closed fracture Activity Restrictions/Additional Instructions: Rest, ice, elevate the extremity, please wear the brace. Tylenol for discomfort and pain Please follow-up with orthopedics Please elevate the legs as much as you can tolerate Calf pumps to help with the lower extremity edema Please elevate the legs in bed Please make an appointment with your primary care doctor for your recent increase in falls Prescriptions: No Action vitamin B complex [B Complex-Vitamin B12] Tablet 1 tab PO DAILY cholecalciferol (vitamin D3) 50 mcg (2,000 unit) capsule 50 mcg PO DAILY vitamin E 100 unit tablet PO lycopene 10 mg capsule 40 mg PO DAILY super snooze PO .QHS Fish Oil (#FISH OIL) 1,000 iu PO Q DAY Qty: 0 Coenzyme Q10 (#COQ(10)10) 10 mg PO QDAY Qty: 0 MULTIVITAMIN (#MULTIPLE VITAMINS) 1 cap PO QDAY Qty: 0 Ginkgo Biloba (#GINKGO BILOBA PLUS) 1 cap PO QDAY Qty: 0 sertraline 100 mg tablet 100 mg PO .HS Qty: 90 3RF aspirin [Adult Aspirin Regimen] 81 mg tablet,delayed release (DR/EC) 81 mg PO DAILY Qty: 90 3RF tamsulosin [Flomax] 0.4 mg capsule 0.4 mg PO QDAY Qty: 90 3RF levothyroxine 50 mcg tablet 50 mcg PO DAILY Qty: 90 3RF Rx Instructions: Take one tablet once daily 2 hours prior to eating or other meds ketoconazole 2 % cream See Rx Instructions topical BID Qty: 60 0RF Rx Instructions: 1mg toppically bid TOP BID triamcinolone acetonide 0.1 % cream See Rx Instructions topical BID Qty: 80 0RF Rx Instructions: 1 mg topically bid TOP BID gabapentin 300 mg capsule 300 mg PO BID Qty: 180 3RF Disabled Parking Permit See Rx Instructions .ROUTE .COMPLEX Qty: 1 0RF Rx Instructions: I find this patient to be medically disabled and qualified for Disabled Parking as indicated, and signed, on the accompanying Disabled Parking Application for Individuals ; spironolactone PO DAILY Patient Comments: Nephrology polyethylene glycol 3350 [Miralax] 17 gram/dose powder 17 g PO BID Qty: 3000 3RF Spiriva Respimat 1.25 mcg/actuation Mist 2 puff INHALATION DAILY Referrals: Adam Ramírez MD [Primary Care Provider] - Chay Alvarez MD [Physician] - (You are being referred to the provider (or provider group) listed but no appointment has been made. Please call the provider?s office within the next day or two at the phone number above to make an appointment. Proximal fibula fracture) Stand Alone Forms: Patient Portal/API ED Sign-out <Mario Parker MD - Last Filed: 11/17/23 20:35> Cosign ED Attending Cosignature Attestation: I was immediately available in the department for consultation. This documentation has been reviewed. Mario Parker MD
[2023-11-17 12:41] VITALS: BP 128/72; PULSE 80; RESP 18; TEMP 36.8; O2SAT 98
== END 2023-11-17 12:42 | disposition home or self-care (01) ==
PROVIDERS: Emergency Provider Physician Assistant; Family Provider Family Medicine; PCP Family Medicine
DX: S82.832A Other fracture of upper and lower end of left fibula, initial encounter for closed fracture (principal); X50.1XXA Overexertion from prolonged static or awkward postures, initial encounter
CPT/HCPCS: 29530; 73562; 73610; 99282; 99283

== ENCOUNTER 2023-12-21 15:01 | Emergency (ER) | payer MEDICARE, OTHER, SELFPAY ==
[2023-12-21 15:05] VITALS: BP 131/64; PULSE 93; RESP 18; TEMP 36.6; O2SAT 99; BMI 38.7
--- NOTE | 2023-12-21 15:41 | ED.FALL ---
HPI - Fall <Swapna Pearce PA-C - Last Filed: 12/21/23 19:32> General Chief Complaint: Fall Stated Complaint: lower back probelm, fall yesterday Time Seen by Provider: 12/21/23 15:17 Source: patient Mode of arrival: Wheelchair History of Present Illness HPI Narrative: Mr. Irwin is a very pleasant 83-year-old male with a past medical history of peripheral vascular disease, chronic nonhealing wounds, chronic lower extremity edema, COPD, CKD, hypertension, hyperlipidemia, bilateral lower extremity neuropathy, prostate cancer, recent left fibular fracture s/p ORIF w/ Dr. Cowan who presents to the emergency department for back pain after a fall that occurred yesterday. Patient reports that he was at his segregator's yesterday getting lab work done when he accidentally tripped and fell. Patient is currently in a left lower extremity walking boot after having orthopedic surgery which he reports contributed to his fall in addition to his chronic neuropathy. Patient was using a cane when he fell. Reports falling backwards on a staircase hitting his mid back and the back of his head. Patient had no loss of consciousness, nausea or vomiting after the event. The patient went to the [facility] urgent Care to be evaluated. The patient did not have any symptoms precipitating his fall such as dizziness, lightheadedness, chest pain or shortness of breath and reports it was due to being off balance from his walking boot. Patient describes midthoracic/lumbar back pain that has been present since the fall. The patient had lumbar and thoracic x-rays performed at the urgent care. X-ray showed no acute fracture or dislocation. The patient denies headache, visual disturbance, dizziness, neck pain, abdominal pain, nausea, vomiting, dizzy nauseous, fevers, chills, chest pain, shortness of breath. The patient's legs are noted to be extremely edematous and discolored which the patient and his report have been his baseline for the last [address] Ramírez. Related Data Home Medications Medication Instructions Recorded Confirmed Fish Oil (#FISH OIL) 1,000 iu PO Q DAY ##0 09/16/10 11/21/23 Coenzyme Q10 (#COQ(10)10) 10 mg PO QDAY ##0 05/30/12 11/21/23 Ginkgo Biloba (#GINKGO BILOBA PLUS) 1 cap PO QDAY ##0 05/30/12 11/21/23 MULTIVITAMIN (#MULTIPLE VITAMINS) 1 cap PO QDAY ##0 05/30/12 11/21/23 tiotropium bromide 1.25 2 puff inhalation DAILY 10/17/17 11/21/23 mcg/actuation mist for inhalation (Spiriva Respimat) vitamin B complex (B 1 tab PO DAILY 04/08/21 11/21/23 Complex-Vitamin B12 tablet) cholecalciferol (vitamin D3) 50 50 mcg PO DAILY 10/31/22 11/21/23 mcg (2,000 unit) capsule lycopene 10 mg capsule 40 mg PO DAILY 10/31/22 11/21/23 super snooze PO .QHS 10/31/22 11/21/23 vitamin E 100 unit tablet unit PO 10/31/22 11/21/23 spironolactone PO DAILY 03/06/23 11/21/23 Previous Rx's Medication Instructions Recorded polyethylene glycol 3350 17 17 g PO BID #3,000 grams 03/06/23 gram/dose oral powder (Miralax) aspirin 81 mg tablet,delayed 81 mg PO DAILY #90 tabs 05/01/23 release (Adult Aspirin Regimen) levothyroxine 50 mcg tablet 50 mcg PO DAILY #90 tabs 05/01/23 sertraline 100 mg tablet 100 mg PO .HS #90 tabs 05/01/23 Disabled Parking Permit See Rx Instructions .Route 06/29/23 .COMPLEX #1 ea ketoconazole 2 % topical cream See Rx Instructions topical BID 09/06/23 #60 grams triamcinolone acetonide 0.1 % See Rx Instructions topical BID 09/06/23 topical cream #80 grams gabapentin 300 mg capsule 300 mg PO TID #270 caps 11/22/23 cephalexin 500 mg capsule 500 mg PO QID 7 days #28 caps 12/21/23 Allergies Allergy/AdvReac Type Severity Reaction Status Date / Time sulfadiazine [SULFADIAZINE] Allergy Mild CHILDHOOD Verified 06/29/23 10:19 ALLERGY Sulfa (Sulfonamide Allergy Verified 12/21/23 15:04 Antibiotics) Review of Systems <Swapna Pearce PA-C - Last Filed: 12/21/23 19:32> Review of Systems ROS Unobtainable: All systems reviewed & are unremarkable except as noted in HPI and below Patient History <Swapna Pearce PA-C - Last Filed: 12/21/23 19:32> Medical History Mild intermittent asthma (07/09/13) Elevated random blood glucose level Urge incontinence Lower urinary tract symptoms (LUTS) Prostate cancer Subclinical hypothyroidism Subareolar mass of left breast Chronic cough Sleep apnea PTSD (post-traumatic stress disorder) (1965) Peripheral neuropathy Rotator cuff injury (2008) Shoulder pain (2008) Lesion of nose Skin tags, multiple acquired Mumps (~195) Diverticulosis, sigmoid (05/13/08) Colon polyps (05/13/08) Asthma Surgical History History of colonoscopy with polypectomy (11/09/15) History of right cataract surgery (10/31/17) History of local excision of skin lesion History of colonoscopy with polypectomy (05/13/08) Anesthesia Status post surgical removal of nail matrix of toe H/O wisdom tooth extraction History of surgery of head (12/2011) Status post hernia repair (10/2006) Status post arthroscopy (1997) Family History Brother Age: 94 Skin cancer Father Dementia Mental health problem Stroke Prostate cancer Grandfather Mental health problem Grandmother Heart disease Heart attack Mother Gallbladder disease Stroke Breast cancer Grandfather No problems noted. Grandmother No problems noted. Sister No problems noted. Social History marital status: number of children: 4 household members: spouse Smoking Status: Former smoker alcohol intake: never substance use type: does not use Smoking Status: Former smoker Substance Use Type: does not use Exam <Swapna Pearce PA-C - Last Filed: 12/21/23 19:32> Narrative Exam Narrative: GENERAL: 83 year old patient appears stated age. Deconditioned obese patient in no acute distress. HEAD: Atraumatic. Normocephalic. EYES: PERRL. Extraocular motions intact. No scleral icterus. No injection or drainage. ENT: Nose without bleeding, purulent drainage. Airway patent. NECK: Trachea midline. Cervical ROM intact. CARDIOVASCULAR: Regular rate and rhythm. RESPIRATORY: ?Nonlabored respirations. ?Speaking in clear, full sentences. ?Clear to auscultation. Breath sounds equal bilaterally. No wheezes, rales, or rhonchi. ? GASTROINTESTINAL: Abdomen soft, non-tender, nondistended. EXTREMITIES: 2+ bilateral lower extremity pitting edema. Dark discoloration of the bilateral lower extremities consistent with chronic peripheral vascular disease. Left walking boot removed revealing medial and lateral malleolus surgical incisions that are intact. Proximal to the left lateral malleolus the patient has a blister that has opened. No increased warmth on bilateral lower extremities. He does have warm, perfused bilateral feet. BACK: Midline tenderness to palpation of the midthoracic spine. No cervical or lumbar tenderness. No palpable step-offs. NEURO: AOx3. ?Clear speech. ?Moves all 4 extremities appropriately. No facial asymmetry Initial Vital Signs Initial Vital Signs: Vital Signs Temperature 98 F 12/21/23 15:05 Pulse Rate 93 H 12/21/23 15:05 Respiratory Rate 18 12/21/23 15:05 Blood Pressure 131/64 12/21/23 15:05 Pulse Oximetry 99 12/21/23 15:05 Oxygen Delivery Method Room Air 12/21/23 15:05 <Cyndee Gonsalez MD - Last Filed: 12/22/23 00:53> Initial Vital Signs Initial Vital Signs: Vital Signs Temperature 98 F 12/21/23 15:05 Pulse Rate 93 H 12/21/23 15:05 Respiratory Rate 18 12/21/23 15:05 Blood Pressure 131/64 12/21/23 15:05 Pulse Oximetry 99 12/21/23 15:05 Oxygen Delivery Method Room Air 12/21/23 15:05 Course <Swapna Pearce PA-C - Last Filed: 12/21/23 19:32> Orders Ordered: ED Orders 12/21/23 16:15 CT head/brain wo con Stat CT lumbar spine wo con Stat CT thoracic spine wo con Stat 12/21/23 16:36 Ictotest Urine Stat Urine Culture Stat Urine Microscopic Stat Discontinued Medications Cephalexin HCl (Cephalexin 250 Mg Capsule) 500 mg PO NOW ONE Stop: 12/21/23 18:07 Last Admin: 12/21/23 18:10 Dose: 500 mg Documented By: TADEO Consultations Consultation #1: Consulted orthopedic surgeon on-call Dr. Baldwin. Discussed findings of patient's imaging showing L1 through L3 transverse processes fractures. Plan is nonoperative, pain control, immobilization, sometimes patient's benefit from TLSO brace however not required. Vital Signs Vital signs: Vital Signs - 8 hr 12/21/23 18:54 Pulse Rate 86 Respiratory Rate 14 Blood Pressure 150/70 H Pulse Oximetry 99 Oxygen Delivery Method Room Air <Cyndee Gonsalez MD - Last Filed: 12/22/23 00:53> Orders Ordered: ED Orders 12/21/23 16:15 CT head/brain wo con Stat CT lumbar spine wo con Stat CT thoracic spine wo con Stat 12/21/23 16:36 Ictotest Urine Stat Urine Culture Stat Urine Microscopic Stat Discontinued Medications Cephalexin HCl (Cephalexin 250 Mg Capsule) 500 mg PO NOW ONE Stop: 12/21/23 18:07 Last Admin: 12/21/23 18:10 Dose: 500 mg Documented By: TADEO Vital Signs Vital signs: Vital Signs - 8 hr 12/21/23 18:54 Pulse Rate 86 Respiratory Rate 14 Blood Pressure 150/70 H Pulse Oximetry 99 Oxygen Delivery Method Room Air MDM - Fall <Swapna Pearce PA-C - Last Filed: 12/21/23 19:32> Medical Records Attestation: I reviewed the patient's medical records. Medical records narrative: Outside report from [facility] urgent care visit on 12/21/2023 reviewed. Lab Data Labs: Lab Results 12/21/23 Range/Units 16:36 Ur Bilirubin Confirm Positive H (Negative) Urine RBC 0-1/hpf (0-5/HPF) Urine WBC 0-1/hpf (0-5/HPF) Ur Squamous Epith Cells 0-1 /hpf (0-5/HPF) Calcium Oxalate Crystal Many H Urine Bacteria None seen (None) Hyaline Casts 1-5/lpf (None) Urine Mucus 1+ H (Negative) Ur Culture Indicated? Cult not indicated Vol Urine Centrifuged 10ml (spun) Urine Dip Bedside Urine Glucose Negative Bedside Urine Bilirubin + 1 Bedside Urine Ketone +/- 5 Urine Specific Leonard 1.025 Bedside Urine Occult Blood - Negative Bedside Urine pH 6.0 Bedside Urine Protein +/- 15 Bedside Urine Urobilinogen +/- 1mg Bedside Urine Nitrite - Negative Bedside Urine Leukocytes +/- 15 Esterase [address] Data Head CT, Thoracic Cpine CT, Lumbar Spine CT. : Radiologist's Impression: FINDINGS: Image quality: Diagnostic. CSF spaces: Basal cisterns are patent. No extra-axial fluid collections. The ventricles are symmetric in size and shape. Brain: No intracranial bleeds or masses. There is cerebral volume loss for age, with resultant ventricular and sulcal prominence. There are periventricular and deep white matter chronic small vessel ischemic changes. There is intracranial internal carotid artery atherosclerosis. Skull and face: Calvarium and visualized facial bones appear intact, without suspicious lesions. Sinuses: Visualized sinuses and mastoids are clear. IMPRESSION: 1. No acute intracranial pathology. 2. No acute skull fracture. FINDINGS: Image quality: Excellent. Bones: There is normal bony alignment. No acute vertebral body compression fractures. Slightly displaced fractures are noted involving right transverse processes of L1, L2, and L3 vertebral bodies as well as left transverse processes of L1 , L2 and L3 vertebral bodies. vertebral bodies No suspicious lytic or blastic bony lesions. No pars defects. Mild degenerative endplate changes are noted throughout lumbar spine without significant central canal stenosis or neural foraminal narrowing. Partial ankylosis involving right sacroiliac joint. Osteoarthritic changes are left sacroiliac joint. Soft tissues: No retroperitoneal masses or hematomas. Visualized aorta is normal in caliber. IMPRESSION: 1. Slightly displaced fractures involving bilateral transverse processes of L1 through L3 vertebral bodies. No acute vertebral body compression fracture. 2. Cdoz-iw-gnapfecs degenerative disc disease throughout lumbar spine. No high-grade central canal stenosis or neural foraminal narrowing is seen. 3. 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 FINDINGS: Image quality: Excellent. Bones: There is zoiy-zp-orkredyb kyphosis with apex at T10 level. Chronic appearing mild anterior wedge compression deformity at T10 through T12 levels are seen with 10-15 percent loss of vertebral body height anteriorly. No acute vertebral body compression fractures. No suspicious sclerotic or lytic bony lesions. Mild degenerative endplate changes are noted throughout thoracic spine. Central spinal canal is of normal overall caliber. Minimally displaced fracture involving bilateral transverse processes of L1 and L2 is seen incompletely evaluated on this study. Soft tissues: No paravertebral masses or hematomas. Visualized posteromedial lungs appear clear. IMPRESSION: 1. No acute thoracic spine compression fracture or spondylolisthesis. Akjn-fq-imsmkonh degenerative disc disease throughout thoracic spine. 2. Chronic appearing mild anterior wedge compression deformity at T10 through T12 levels with moderate kyphosis centered at T10 level. 3. No gross paraspinous soft tissue abnormalities. 4. Slightly displaced fractures involving bilateral transverse processes of L1 and L2 vertebral bodies. Please correlate with CT of lumbar spine findings. MDM Narrative Medical decision making narrative: Deconditioned 83-year-old male presents to the emergency department for mid back pain after fall yesterday. Differential diagnosis includes but is not limited to thoracic compression fracture, lumbar fracture, muscle contusion, muscle strain, acute on chronic degenerative disc disease, UTI, etc. On exam patient is in no acute distress, nontoxic appearing, very deconditioned with chronic peripheral vascular disease and edema on bilateral lower extremities. His left ankle surgical incisions are dry and intact with very minimal drainage on dressing. He does have a broken open blister just proximal to the surgical incision however. Vital signs all within normal limits. Him and his are not concerned with his lower extremities today and report that they are baseline appearing and he has followed with wound care. He does have thoracic spinal tenderness and subjective lumbar tenderness. In addition he hit the back of his head with this fall so after shared decision-making we will obtain CT scan of the head thoracic and lumbar spine to rule out acute abnormality. We will also obtain UA to rule out bladder infection. Patient has chronic neuropathy and incontinence however he denies any new bowel or bladder dysfunction or worsening numbness or tingling. He is able to stand independently. He does have a history of prostate Ca. UA reveals bilirubin and leuks. Informed patient of the importance of following up with PCP for further evaluation of possible underlying liver abnormality. Out of an abundance of caution, we will treat + leuks with Keflex q.i.d. x7 days, urine culture pending. Patient also has an open wound on his left lower extremity so Keflex can also cover for empiric wound infection. Head CT negative for any acute abnormality. Thoracic CT negative for acute fracture. He does have degenerative disc disease throughout the thoracic spine and a chronic appearing mild anterior wedge compression deformity of T10 through T12. Lumbar CT reveals slightly displaced fractures involving the bilateral transverse processes of L1 through L3 vertebral bodies. He also has jcrj-xz-qyjuvduo degenerative disc disease throughout the lumbar spine. He does have partial ankylosis of the right SI joint and severe osteoarthritic changes involving the left SI joint concerning for ankylosing spondylitis. I discussed all these results with the patient including incidental findings. I contacted the orthopedic surgeon on-call regarding the acute L1 through L3 transverse process fractures. He recommended nonoperative supportive care with pain control. Patient is ambulatory with cane/walker and has assistance of his . He just picked up a 30 day prescription of hydrocodone so he does not need any additional pain relief. I had an extensive discussion with the patient regarding his diagnoses today of lumbar fracture, UTI, bilirubin in his urine, etc. he understands the importance of completing the course of antibiotics and following up promptly with his PCP for further evaluation. In addition I provided patient with orthopedic follow up however he does currently have his own orthopedic surgeon that he sees for his left lower leg injury. Patient and his verbalized understanding of all information and he is stable for discharge home. <Cyndee Gonsalez MD - Last Filed: 12/22/23 00:53> Lab Data Labs: Lab Results 12/21/23 Range/Units 16:36 Ur Bilirubin Confirm Positive H (Negative) Urine RBC 0-1/hpf (0-5/HPF) Urine WBC 0-1/hpf (0-5/HPF) Ur Squamous Epith Cells 0-1 /hpf (0-5/HPF) Calcium Oxalate Crystal Many H Urine Bacteria None seen (None) Hyaline Casts 1-5/lpf (None) Urine Mucus 1+ H (Negative) Ur Culture Indicated? Cult not indicated Vol Urine Centrifuged 10ml (spun) Urine Dip Bedside Urine Glucose Negative Bedside Urine Bilirubin + 1 Bedside Urine Ketone +/- 5 Urine Specific Leonard 1.025 Bedside Urine Occult Blood - Negative Bedside Urine pH 6.0 Bedside Urine Protein +/- 15 Bedside Urine Urobilinogen +/- 1mg Bedside Urine Nitrite - Negative Bedside Urine Leukocytes +/- 15 Esterase Discharge Plan Departure Patient Disposition: Home Clinical Impression: Bilirubinuria Fall Qualifiers: Encounter type: initial encounter Qualified Code(s): W19.XXXA - Unspecified fall, initial encounter Fracture of transverse process of lumbar vertebra Qualifiers: Encounter type: initial encounter Fracture type: closed Qualified Code(s): S32.009A - Unspecified fracture of unspecified lumbar vertebra, initial encounter for closed fracture UTI (urinary tract infection) Qualifiers: Urinary tract infection type: acute cystitis Hematuria presence: without hematuria Qualified Code(s): N30.00 - Acute cystitis without hematuria Leg wound, left Qualifiers: Encounter type: initial encounter Qualified Code(s): S81.802A - Unspecified open wound, left lower leg, initial encounter Instructions: How to Prevent Falls Activity Restrictions/Additional Instructions: Today you were evaluated for back pain after a fall. The CT scan of your lumbar spine revealed fractures of the transverse processes of L1, L2, L3 vertebral bones. Please take your prescribed pain medicine as needed, rest, and avoid straining the back. Please follow up with your primary care doctor and your orthopedic doctor for further management Your CT scans also revealed chronic degenerative disc disease and signs concerning for ankylosing spondylitis within the sacroiliac joints. Your urine had bilirubin in it today, it is important to follow up with your primary care doctor for further evaluation of possible underlying liver or gallbladder abnormality. In addition, your urine showed some white blood cells that could be related to bladder infection. I am treating you with antibiotics for this in addition to avoiding infection of the open wound on your left lower leg. Please follow up with wound care. Return to the emergency room if you develop any new or worsening symptoms including but not limited to increased redness, warmth or drainage around the wound, inability to walk due to back pain, changes in your bowel or bladder habits, weakness or decreased sensation in the legs, or any other concerns. Today I discussed your fractures with orthopedic doctor Dr. Baldwin. You may follow up with him at [facility] [phone] or your personal orthopedic doctor. Please follow up with your primary care doctor within the next 2-3 days. Return to the emergency department for any new or worsening symptoms, or any other concerns. Thank you for letting me participate in your care, Swapna Pearce PA-C Prescriptions: New cephalexin 500 mg capsule 500 mg PO QID 7 Days Qty: 28 0RF No Action vitamin B complex [B Complex-Vitamin B12] Tablet 1 tab PO DAILY cholecalciferol (vitamin D3) 50 mcg (2,000 unit) capsule 50 mcg PO DAILY vitamin E 100 unit tablet PO lycopene 10 mg capsule 40 mg PO DAILY super snooze PO .QHS Fish Oil (#FISH OIL) 1,000 iu PO Q DAY Qty: 0 Coenzyme Q10 (#COQ(10)10) 10 mg PO QDAY Qty: 0 MULTIVITAMIN (#MULTIPLE VITAMINS) 1 cap PO QDAY Qty: 0 Ginkgo Biloba (#GINKGO BILOBA PLUS) 1 cap PO QDAY Qty: 0 sertraline 100 mg tablet 100 mg PO .HS Qty: 90 3RF aspirin [Adult Aspirin Regimen] 81 mg tablet,delayed release (DR/EC) 81 mg PO DAILY Qty: 90 3RF levothyroxine 50 mcg tablet 50 mcg PO DAILY Qty: 90 3RF Rx Instructions: Take one tablet once daily 2 hours prior to eating or other meds ketoconazole 2 % cream See Rx Instructions topical BID Qty: 60 0RF Rx Instructions: 1mg toppically bid TOP BID triamcinolone acetonide 0.1 % cream See Rx Instructions topical BID Qty: 80 0RF Rx Instructions: 1 mg topically bid TOP BID gabapentin 300 mg capsule 300 mg PO TID Qty: 270 3RF Disabled Parking Permit See Rx Instructions .ROUTE .COMPLEX Qty: 1 0RF Rx Instructions: I find this patient to be medically disabled and qualified for Disabled Parking as indicated, and signed, on the accompanying Disabled Parking Application for Individuals ; spironolactone PO DAILY Patient Comments: Nephrology polyethylene glycol 3350 [Miralax] 17 gram/dose powder 17 g PO BID Qty: 3000 3RF Spiriva Respimat 1.25 mcg/actuation Mist 2 puff INHALATION DAILY Referrals: Adam Ramírez MD [Primary Care Provider] - Stand Alone Forms: Patient Portal/API/Survey ED Sign-out <Cyndee Gonsalez MD - Last Filed: 12/22/23 00:53> Cosign ED Attending Cosignature Attestation: I did not see this patient. I was available all times for consultation.
--- NOTE | 2023-12-21 16:15 | DI.CT.S_ITS ---
PROCEDURE: CT THORACIC SPINE WO CON INDICATIONS: fall backwards yesterday; mid back pain TECHNIQUE: Noncontrast 3 mm thick sections acquired through the region of interest in the thoracic spine. Sagittal and coronal reformats were then constructed. For radiation dose reduction, the following was used: automated exposure control. COMPARISON: [facility], CR, XR THORACIC SPINE 3 VIEWS, 12/20/2023, 17:08. FINDINGS: Image quality: Excellent. Bones: There is zjdu-[id number] kyphosis with apex at T10 level. Chronic appearing mild anterior wedge compression deformity at T10 through T12 levels are seen with 10-15 percent loss of vertebral body height anteriorly. No acute vertebral body compression fractures. No suspicious sclerotic or lytic bony lesions. Mild degenerative endplate changes are noted throughout thoracic spine. Central spinal canal is of normal overall caliber. Minimally displaced fracture involving bilateral transverse processes of L1 and L2 is seen incompletely evaluated on this study. Soft tissues: No paravertebral masses or hematomas. Visualized posteromedial lungs appear clear. IMPRESSION: 1. No acute thoracic spine compression fracture or spondylolisthesis. Iskt-pn-bqhtxmgn degenerative disc disease throughout thoracic spine. 2. Chronic appearing mild anterior wedge compression deformity at T10 through T12 levels with moderate kyphosis centered at T10 level. 3. No gross paraspinous soft tissue abnormalities. 4. Slightly displaced fractures involving bilateral transverse processes of L1 and L2 vertebral bodies. Please correlate with CT of lumbar spine findings. Dictated by: Damion Leger M.D. on 12/21/2023 at 17:03 Approved by: Damion Leger M.D. on 12/21/2023 at 17:07
--- NOTE | 2023-12-21 16:15 | DI.CT.S_ITS ---
PROCEDURE: CT HEAD/BRAIN WO CON INDICATIONS: fall backwards yesterday; hit back of head TECHNIQUE: Noncontrast 4.5 mm thick angled axial sections acquired from the foramen magnum to the vertex, with coronal and sagittal reformats. For radiation dose reduction, the following was used: automated exposure control, adjustment of mA and/or kV according to patient size. COMPARISON: [facility], CT, CT HEAD/BRAIN WO CON, 01/30/2019, 17:01. FINDINGS: Image quality: Diagnostic. CSF spaces: Basal cisterns are patent. No extra-axial fluid collections. The ventricles are symmetric in size and shape. Brain: No intracranial bleeds or masses. There is cerebral volume loss for age, with resultant ventricular and sulcal prominence. There are periventricular and deep white matter chronic small vessel ischemic changes. There is intracranial internal carotid artery atherosclerosis. Skull and face: Calvarium and visualized facial bones appear intact, without suspicious lesions. Sinuses: Visualized sinuses and mastoids are clear. IMPRESSION: 1. No acute intracranial pathology. 2. No acute skull fracture. Dictated by: Damion Leger M.D. on 12/21/2023 at 17:03 Approved by: Damion Leger M.D. on 12/21/2023 at 17:03
--- NOTE | 2023-12-21 16:15 | DI.CT.S_ITS ---
PROCEDURE: CT LUMBAR SPINE WO CON INDICATIONS: fall backwards yesterday; hit back of head TECHNIQUE: Noncontrast 3 mm thick sections acquired from the T12 level to the sacrum. Sagittal and coronal reformats were constructed. For radiation dose reduction, the following was used: automated exposure control. COMPARISON: None. FINDINGS: Image quality: Excellent. Bones: There is normal bony alignment. No acute vertebral body compression fractures. Slightly displaced fractures are noted involving right transverse processes of L1, L2, and L3 vertebral bodies as well as left transverse processes of L1 , L2 and L3 vertebral bodies. vertebral bodies No suspicious lytic or blastic bony lesions. No pars defects. Mild degenerative endplate changes are noted throughout lumbar spine without significant central canal stenosis or neural foraminal narrowing. Partial ankylosis involving right sacroiliac joint. Osteoarthritic changes are left sacroiliac joint. Soft tissues: No retroperitoneal masses or hematomas. Visualized aorta is normal in caliber. IMPRESSION: 1. Slightly displaced fractures involving bilateral transverse processes of L1 through L3 vertebral bodies. No acute vertebral body compression fracture. 2. [id number] degenerative disc disease throughout lumbar spine. No high-grade central canal stenosis or neural foraminal narrowing is seen. 3. 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 Dictated by: Damion Leger M.D. on 12/21/2023 at 17:07 Approved by: Damion Leger M.D. on 12/21/2023 at 17:13
--- NOTE | 2023-12-21 16:19 | PC.NURSE ---
blister near previous fx site. surgical incision appears well approximated and sutures removed. no drainage from incision site. no redness or swelling around incision.
[2023-12-21 16:53] LABS: Ictotest Urine Positive (Negative)
[2023-12-21] MEDS: cephALEXin 250 MG CAPSULE 500 MG PO (18:10)
[2023-12-21 18:54] VITALS: BP 150/70; PULSE 86; RESP 14; O2SAT 99
[2023-12-21 19:31] LABS: Bacteria Urine None Seen; Calcium Oxalate Crystals Urine Many; Culture Indicated Urine Cult Not Indicated; Hyaline Casts Urine 1-5/LPF; Mucus Urine 1+ (Negative); RBC Urine 0-1/HPF (0-5/HPF); Squamous Epithelial Cell Urine 0-1 /HPF (0-5/HPF); Urine Volume 10mL (spun); WBC Urine 0-1/HPF (0-5/HPF)
== END 2023-12-21 18:56 | disposition home or self-care (01) ==
PROVIDERS: Emergency Provider Physician Assistant; Family Provider Family Medicine; PCP Family Medicine
DX: S32.009A Unspecified fracture of unspecified lumbar vertebra, initial encounter for closed fracture (principal); N30.00 Acute cystitis without hematuria; S81.802A Unspecified open wound, left lower leg, initial encounter; R82.2 Biliuria; S09.90XA Unspecified injury of head, initial encounter; W01.0XXA Fall on same level from slipping, tripping and stumbling without subsequent striking against object, initial encounter
CPT/HCPCS: 70450; 72128; 72131; 81003; 81015; 87086; 99284

== ENCOUNTER → 2023-12-28 09:22 | Outpatient (CLI) | payer MEDICARE, OTHER, SELFPAY ==
[2023-12-28 10:50] LABS: Add Manual Diff / Slide Review NO; Basophils Absolute Auto 0 /uL (0-100); Basophils Percent Auto 0.4 % (0-2); Eosinophils Absolute Auto 200 /uL (0-450); Eosinophils Percent Auto 2.4 % (2-4); Hematocrit 35.6 % (41-53); Hemoglobin 11.9 g/dL (13.5-17.5); Lymphocytes Absolute Auto 700 /uL (1100-4500); Lymphocytes Percent Auto 10.5 % (25-40); Mean Corpuscular HGB Conc 33.5 % (30-36); Mean Corpuscular Hemoglobin 32.8 PG (26-34); Mean Corpuscular Volume 97.9 fL (80-100); Monocytes Absolute Auto 600 /uL (0-900); Monocytes Percent Auto 8.7 % (3-14); Neutrophils Absolute Auto 5400 /uL (1500-7000); Platelet Count 234 X10^3/uL (150-400); Red Blood Cell Count 3.64 X10^6/uL (4.5-5.9); White Blood Cell Count 6.9 X10^3/uL (4.5-11.0)
[2023-12-28 11:15] LABS: Alanine Aminotransferase 29 IU/L (<50); Albumin 3.7 g/dL (3.5-5.0); Albumin Globulin Ratio 1.2 (1.0-2.8); Alkaline Phosphatase 97 U/L (38-126); Aspartate Aminotransferase 36 IU/L (17-59); BUN Creatinine Ratio 26.5 (6-22); Bilirubin Total 0.7 mg/dL (0.2-1.3); Blood Urea Nitrogen 31 mg/dL (9-20); Calcium 9.8 mg/dL (8.4-10.2); Carbon Dioxide 26 mmol/L (22-32); Chloride 103 mmol/L (98-107); Cholesterol 125 mg/dL (140-199); Estimated Glomerular Filt Rate > 60 mL/min (>60); Globulin 3.2 g/dL (1.7-4.1); Glucose 136 mg/dL (80-110); HDL Cholesterol 44 mg/dL (40-60); HEMOLYSIS < 15 (0-50); LDL Cholesterol Calculated 69 mg/dL (<100); Potassium 4.6 mmol/L (3.4-5.1); Sodium 134 mmol/L (137-145); Total Protein 6.9 g/dL (6.3-8.2); Triglycerides 61 mg/dL (35-150)
== END ==
PROVIDERS: Family Provider Family Medicine; PCP Family Medicine; Referring Provider Family Medicine; Visit Provider Family Medicine
DX: E78.2 Mixed hyperlipidemia (principal); N18.9 Chronic kidney disease, unspecified; D64.9 Anemia, unspecified; E66.01 Morbid (severe) obesity due to excess calories; I12.9 Hypertensive chronic kidney disease with stage 1 through stage 4 chronic kidney disease, or unspecified chronic kidney disease
CPT/HCPCS: 36415; 80053; 80061; 84443; 85025

== ENCOUNTER → 2024-02-16 10:39 | Outpatient (CLI) | payer MEDICARE, OTHER, SELFPAY ==
--- NOTE | 2024-02-16 10:40 | DI.US.S_ITS ---
PROCEDURE: US PERIPH VENOUS LOW EXTREM LT INDICATIONS: SWELLING OF LLE / RULE OUT DVT TECHNIQUE: Real-time imaging, as well as color and pulse Doppler interrogation, were performed of the lower extremity deep veins from the inguinal ligament to the popliteal fossa, with documentation of the visualized calf veins. COMPARISON: None. FINDINGS: The common femoral, femoral, popliteal, and the visualized calf veins are normally compressible, and free of intraluminal thrombus. Color and pulse Doppler demonstrate normal phasic intraluminal flow. There is normal augmentation response to distal compression maneuver. 5.1 x 2.8 cm Knox's cyst. IMPRESSION: No findings of lower extremity deep venous thrombosis. Dictated by: Robert Avila M.D. on 02/16/2024 at 11:27 Approved by: Robert Avila M.D. on 02/16/2024 at 11:27
== END ==
PROVIDERS: Family Provider Family Medicine; PCP Family Medicine; Referring Provider Orthopaedic Surgery Foot and Ankle Surgery; Visit Provider Orthopaedic Surgery Foot and Ankle Surgery
DX: M79.89 Other specified soft tissue disorders (principal)
CPT/HCPCS: 93971

== ENCOUNTER → 2024-05-03 13:24 | Outpatient (CLI) | payer MEDICARE, OTHER, SELFPAY | PROVIDERS: Family Provider Family Medicine; PCP Family Medicine; Referring Provider Family Medicine; Visit Provider Physician Assistant | DX: I87.2 Venous insufficiency (chronic) (peripheral) (principal); L97.322 Non-pressure chronic ulcer of left ankle with fat layer exposed; L98.8 Other specified disorders of the skin and subcutaneous tissue; R60.0 Localized edema; C61 Malignant neoplasm of prostate | CPT/HCPCS: 11042; 11045; 29581; 99213 ==

== ENCOUNTER → 2024-05-06 09:55 | Outpatient (CLI) | payer MEDICARE, OTHER, SELFPAY | PROVIDERS: Family Provider Family Medicine; PCP Family Medicine; Referring Provider Family Medicine; Visit Provider Surgery | DX: I87.2 Venous insufficiency (chronic) (peripheral) (principal); L97.322 Non-pressure chronic ulcer of left ankle with fat layer exposed; L53.8 Other specified erythematous conditions; L98.8 Other specified disorders of the skin and subcutaneous tissue; R60.0 Localized edema | CPT/HCPCS: 29581 ==

== ENCOUNTER → 2024-05-10 10:51 | Outpatient (CLI) | payer MEDICARE, OTHER, SELFPAY | PROVIDERS: Family Provider Family Medicine; PCP Family Medicine; Referring Provider Family Medicine; Visit Provider Physician Assistant | DX: I87.2 Venous insufficiency (chronic) (peripheral) (principal); L97.322 Non-pressure chronic ulcer of left ankle with fat layer exposed; L53.8 Other specified erythematous conditions; L98.8 Other specified disorders of the skin and subcutaneous tissue; R60.0 Localized edema; G60.9 Hereditary and idiopathic neuropathy, unspecified | CPT/HCPCS: 11042; 29581; 99213 ==

== ENCOUNTER → 2024-05-17 11:05 | Outpatient (CLI) | payer MEDICARE, OTHER, SELFPAY ==
--- NOTE | 2024-05-17 | OV.WND_ITS ---
PROGRESS NOTE DETAILS PATIENT NAME: PARUL DAIGLE. PATIENT NUMBER: [id number] CLINICIAN: SAMANTA SIFUENTES R.N. PATIENT DATE OF : 1940 PHYSICIAN / AIR/OCEAN EXPORT CLERK: ZAIDA OAKES PA-C PATIENT SUBJECTIVE CHIEF COMPLAINT THIS INFORMATION WAS OBTAINED FROM THE PATIENT. WOUND. GENERAL NOTES EDDIE ULCER OF LEFT ANKLE. ALLERGIES SULFADIAZINE (SEVERITY: MILD), SULFA (SULFONAMIDE ANTIBIOTICS) HPI THIS INFORMATION WAS OBTAINED FROM THE PATIENT. LOCATION: LEFT ANKLE DURATION: 04/05/24 CONTEXT: VENOUS THE PATIENT IS AN 82-YEAR-OLD MALE WITH PERIPHERAL NEUROPATHY, VENOUS INSUFFICIENCY, AND PROSTATE CANCER WHO RETURNS TO WOUND CARE FOR VENOUS ULCERS TO LEFT LOWER EXTREMITY. THE PATIENT WAS PREVIOUSLY SEEN IN WOUND CARE FOR SIMILAR WOUNDS. HE HAD AN ORIF IN NOVEMBER AND DEVELOPED THESE ULCERS AFTER USING AN ANKLE BRACE. HE WAS SEEN BY DR SANTOS IN MARCH AND WAS TREATED WITH A COURSE OF KEFLEX. PATIENT REPORTS MILD PAIN. HE DENIES ANY FEVER OR CHILLS. THE PATIENT REPORTS A GOOD APPETITE AND DENIES HAVING ANY RECENT CHANGES IN HIS OVERALL HEALTH. HE HAS BEEN USING COMPRESSION WRAP DRESSING FOR THE PAST WEEK. HE HAS NO PRIOR HISTORY OF DVT. ABIS SHOW ADEQUATE FLOW FOR HEALING. ON EXAM TODAY THE ULCER SHOWS 64% IMPROVEMENT AND THERE IS NO SIGN OF INFECTION. LABS: 05/03/24: ABIS L 1.21, R 1.24 03/21/23: CULTURE GREW MODERATE STAPHYLOCOCCUS AUREUS 12/15/22: ELECTROLYTES UNREMARKABLE, GFR GREATER THAN 60 MEDICAL HISTORY THIS INFORMATION WAS OBTAINED FROM THE CHART, PATIENT. PATIENT HAS A MEDICAL HISTORY OF: MILD INTERMITTENT ASTHMA ELEVATED RANDOM BLOOD GLUCOSE LEVEL URGE INCONTINENCE LOWER URINARY TRACT SYMPTOMS (LUTS) PROSTATE CANCER PARUL DAIGLE [id number] 1940 SUBCLINICAL HYPOTHYROIDISM SUBAREOLAR MASS OF LEFT BREAST CHRONIC COUGH SLEEP APNEA PTSD (1965) PERIPHERAL NEUROPATHY ROTATOR CUFF INJURY SHOULDER PAIN LESION OF NOSE SKIN TAGS MUMPS DIVERTICULOSIS, SIGMOID COLON POLYPS ASTHMA SURGICAL HISTORY THIS INFORMATION WAS OBTAINED FROM THE CHART, PATIENT. PATIENT HAS A SURGICAL HISTORY OF: HISTORY OF COLONOSCOPY WITH POLYPECTOMY- HISTORY OF RIGHT CATARACT SURGERY- HISTORY OF LOCAL EXCISION OF SKIN LESION- HISTORY OF COLONOSCOPY WITH POLYPECTOMY- ANESTHESIA- STATUS POST SURGICAL REMOVAL OF NAIL MATRIX OF TOE- H/O WISDOM TOOTH EXTRACTION- HISTORY OF SURGERY OF HEAD- STATUS POST HERNIA REPAIR- STATUS POST ARTHROSCOPY- LEFT ANKLE ORIF- OBJECTIVE VITALS HEIGHT/LENGTH: 71 IN (180.34 CM), WEIGHT: 280.39 LBS (127.45 KGS), BMI: 39.1, TEMPERATURE: 98.20 ?F (36.78 ?C), PULSE: 85 BPM, RESPIRATORY RATE: 18 BREATHS/MIN, BLOOD PRESSURE: 147/84 MMHG, PULSE OXIMETRY: 98 %. PHYSICAL EXAM CONSTITUTIONAL: GENERALIZED WEAKNESS. IN NO APPARENT DISTRESS. GOOD ATTENTION TO HYGIENE AND BODY HABITS. ALERT AND ORIENTED X 3. WELL NOURISHED. VITAL SIGNS REVIEWED AND NOTED. BLOOD PRESSURE NORMAL. PULSE RATE AND RHYTHM REGULAR. AFEBRILE. OBESE. WELL DEVELOPED, WELL NOURISHED, AND IN NO ACUTE DISTRESS. ALERT AND ORIENTED X3. AMBULATES AND IS ABLE TO CHANGE POSITION WITHOUT ASSISTANCE. ALERT AND ORIENTED X 3. RESPIRATORY: EVEN RESPIRATIONS WITHOUT USE OF ACCESSORY MUSCLES. NO INTERCOASTAL RETRACTIONS NOTED. EVEN AND NON LABORED RESPIRATION. CARDIOVASCULAR: SEE LOWER EXTREMITY ASSESSMENT WHEN APPLICABLE. THERE IS NO PERIPHERAL EDEMA, CYANOSIS OR PALLOR. EXTREMITIES ARE WARM AND WELL PERFUSED. CAPILLARY REFILL IS LESS THAN 2 SECONDS. PARUL DAIGLE [id number] 1940 INTEGUMENTARY (HAIR, SKIN): DORSAL FEET PUFFY. SEE WOUND DESCRIPTION. NEUROLOGICAL: DECREASED LOWER EXTREMITY SENSATION. PSYCHIATRIC: ORIENTATION TO TIME, PLACE AND PERSON: NORMAL AFFECT WITH NORMAL THOUGHT PATTERN. MOOD AND AFFECT: NORMAL AFFECT WITH NORMAL THOUGHT PATTERN. WOUND ASSESSMENT(S) WOUND #2 LEFT, LATERAL ANKLE IS A CHRONIC FULL THICKNESS VENOUS ULCER ACQUIRED ON 04/05/2024 AND HAS RECEIVED A STATUS OF NOT HEALED. INITIAL WOUND ENCOUNTER MEASUREMENTS ARE 5.8CM LENGTH X 1.4CM WIDTH X 0.1 CM DEPTH, WITH AN AREA OF 8.12 SQ CM AND A VOLUME OF 0.812 CUBIC CM.INITIAL WOUND ENCOUNTER PREVIOUS MEASUREMENTS FROM 05/10/2024 ARE 6CM LENGTH X 2CM WIDTH X 0.2CM DEPTH, WITH AN AREA OF 12 SQ CM AND A VOLUME OF 2.4 CUBIC CM. ADIPOSE IS EXPOSED. NO TUNNELING HAS BEEN NOTED. NO SINUS TRACT HAS BEEN NOTED. NO UNDERMINING HAS BEEN NOTED. THERE IS A MODERATE AMOUNT OF SEROSANGUINEOUS DRAINAGE NOTED WHICH HAS NO ODOR. THE PATIENT REPORTS A WOUND PAIN OF LEVEL 0/10. THE WOUND MARGIN IS IRREGULAR WOUND BED HAS YES, BRIGHT RED, FIRM, GRANULATION, YES SLOUGH, NO ESCHAR, YES EPITHELIALIZATION. THE PERIWOUND SKIN EXHIBITED EDEMA, ERYTHEMA AND HEMOSIDEROSIS. THE PERIWOUND SKIN DID NOT EXHIBIT MACERATION. THE PERIWOUND SKIN WAS FRIABLE. THE PERIWOUND SKIN WAS NOT DRY/SCALY AND MOIST. THE TEMPERATURE OF THE PERIWOUND SKIN IS WNL. PERIWOUND SKIN DOES NOT EXHIBIT SIGNS OR SYMPTOMS OF INFECTION. LOCAL PULSE IS DOPPLER. GENERAL NOTES EPITHELIAL BRIDGE NOTED. ADDITIONAL INFORMATION OTHER DEVITALIZED TISSUE PRESENT: BIOFILM BEN/VASCULAR COMPLETED?: 05/03/24 RESULTS?: L: 1.21, R: 1.24 ASSESSMENT ACTIVE PROBLEMS ICD-10 (ENCOUNTER DIAGNOSIS) L97.922 - NON-PRESSURE CHRONIC ULCER OF UNSPECIFIED PART OF LEFT LOWER LEG WITH FAT LAYER EXPOSED (ENCOUNTER DIAGNOSIS) I87.2 - VENOUS INSUFFICIENCY (CHRONIC) (PERIPHERAL) (ENCOUNTER DIAGNOSIS) I89.0 - LYMPHEDEMA, NOT ELSEWHERE CLASSIFIED PROCEDURES WOUND #2 WOUND #2 (VENOUS ULCER) IS LOCATED ON THE LEFT, LATERAL ANKLE. A SKIN/SUBCUTANEOUS TISSUE LEVEL SURGICAL DEBRIDEMENT WITH A TOTAL AREA DEBRIDED OF 8.12 SQ CM. WAS PERFORMED BY ZAIDA OAKES PA-C. SUBCUTANEOUS WAS REMOVED ALONG WITH DEVITALIZED TISSUE: BIOFILM AND SLOUGH. THE FOLLOWING INSTRUMENT(S) WERE USED: CURETTE. PAIN CONTROL WAS ACHIEVED USING EMLA LIDOCAINE/PRILOCAINE 2.5%/2.5%. A TIME OUT WAS CONDUCTED PRIOR TO THE START OF THE PROCEDURE. A MODERATE AMOUNT OF BLEEDING WAS CONTROLLED WITH SILVER NITRATE. THE PROCEDURE WAS TOLERATED WELL WITH A PAIN LEVEL OF 0 THROUGHOUT AND A PAIN LEVEL OF 0 FOLLOWING THE PROCEDURE. POST DEBRIDEMENT MEASUREMENTS: 5.8CM LENGTH X 1.4CM WIDTH X 0.2CM DEPTH; WITH AN AREA OF 8.12 SQ CM AND A VOLUME OF 1.624 CUBIC CM. ADDITIONAL INFORMATION MUSCLE FASCIA OR BONE REMOVED AND SENT TO PATHOLOGY?: PARUL KOCH [id number] 1940 WOUND #2 (VENOUS ULCER) IS LOCATED ON THE LEFT, LATERAL ANKLE. A MULTILAYER COMPRESSION PROCEDURE WAS PERFORMED FOR THE LOWER LEFT EXTREMITY BY SAMANTA SIFUENTES RN. A 2 LAYER COBAN WRAP WAS APPLIED WITH HIGH (30-40 MMHG) COMPRESSION. THE PROCEDURE WAS TOLERATED WELL WITH A PAIN LEVEL OF 0 THROUGHOUT AND A PAIN LEVEL OF 0 FOLLOWING THE PROCEDURE. GENERAL NOTES COBAN 2 LAYER REGULAR COMPRESSION WRAP SYSTEM APPLIED PER WAREHOUSE TECHNICIAN'S GUIDELINES. A MULTILAYER COMPRESSION PROCEDURE WAS PERFORMED FOR THE LOWER RIGHT EXTREMITY BY SAMANTA SIFUENTES RN. A 2 LAYER COBAN WRAP WAS APPLIED WITH HIGH (30-40 MMHG) COMPRESSION. THE PROCEDURE WAS TOLERATED WELL WITH A PAIN LEVEL OF 0 THROUGHOUT AND A PAIN LEVEL OF 0 FOLLOWING THE PROCEDURE. GENERAL NOTES COBAN 2 LAYER REGULAR COMPRESSION WRAP SYSTEM APPLIED PER WAREHOUSE TECHNICIAN'S GUIDELINES. APPLIED TO BILATERAL LOWER EXTREMITIES PER PA ORDERS TO PREVENT RECURRENCE OF VENOUS ULCERS. PLAN WOUND ORDERS: WOUND #2 LEFT, LATERAL ANKLE HAND HYGIENE HAND HYGIENE - WASH HANDS BEFORE AND AFTER WOUND CARE. CALL THE WOUND CENTER AT [phone] IF YOU HAVE SIGNS OR SYMPTOMS OF INFECTION, FEVER CHILLS OR SHAKES, INCREASED DRAINAGE, INCREASED ODOR OR UNUSUAL REDNESS. AFTER WOUND CENTER HOURS PLEASE NOTIFY YOUR PCP OR GO TO THE EMERGENCY ROOM. CLEANSER CLEANSE WOUND WITH NORMAL SALINE CLEANSE WOUND WITH HYPOCHLOROUS ACID (VASHE OR SIMILAR) THEN APPLY HYPOCHLOROUS ACID SOAKED 4X4 GAUZE TO WOUND BED FOR 5-10 MINUTES AFTER WOUND ASSESSMENT COMPLETED. PROCEDURE / ANESTHETIC 4% TOPICAL LIDOCAINE TO WOUND BED PRIOR TO PROCEDURE, IN CLINIC ONLY. DRESSING ORDERS APPLY DRESSING(S) AND SECURE WITH: - HYDROFERA BLUE FOAM. MEXTRA SECURED WITH KERLIX. DRESSING CHANGE FREQUENCY LEAVE DRESSING INTACT UNTIL YOUR NEXT WOUND CENTER APPOINTMENT. KEEP DRY. ADDITIONAL ORDERS: COMPRESSION/EDEMA CONTROL ELEVATE LEG(S) ABOVE THE LEVEL OF THE HEART MUCH POSSIBLE. AVOID STANDING IN ONE POSITION FOR MORE THAN 10 MINUTES. AVOID SITTING WITH LEGS DOWN. DO NOT CROSS LEGS WHEN SITTING. APPLY MULTI LAYER WRAP TO AFFECTED LEG(S) AT 30-40MMHG. - COBAN 2 LAYER REGULAR COMPRESSION WRAP, APPLIED TO BOTH LEGS. DIETARY TAKE VITAMIN C 1000MG BY MOUTH DAILY. TAKE ZINC 25MG BY MOUTH DAILY. INCREASE THE PROTEIN IN YOUR DIET. FOLLOW-UP APPOINTMENTS RETURN APPOINTMENT 1 WEEK - [facility] SCRIBING ATTESTATION I ATTEST, THE NURSE, THAT I SCRIBED THESE ORDERS FOR THE WOUND CARE PROVIDER. PROVIDER REVIEW AND ATTESTATION: REVIEWED AND EVALUATED LABS. REVIEWED HOSPITAL RECORDS. DISCUSSED THE PLAN OF CARE @ BEDSIDE WITH - PATIENT I AGREE AND ATTEST TO THE ABOVE INFORMATION PROVIDED FROM OTHER LICENSED PROFESSIONALS. ANCILLARY SERVICES: PARUL DAIGLE [id number] 1940 ANCILLARY SERVICES: LYMPHEDEMA CLINIC REFERRAL - WE WILL REFER YOU TO [facility] FOR LYMPHEDEMA THERAPY. PLEASE CALL TO SCHEDULE: PLAN OF CARE: 01. ENSURE/ESTABLISH OPTIMAL BLOOD FLOW : - COMPLETE LOWER EXTREMITY ASSESSMENT STATUS: CONTINUED DATE: 05/06/2024 - PERFORM NON-INVASIVE VASCULAR TESTING (I.E. BEN) AND DOCUMENT FINDINGS. CONSIDER REPEATING WHEN WOUND HEALING <40% AFTER 30 DAYS OF WOUND CARE. - 05/03/24 BEN, LLE: 1.21, RLE: 1.24 STATUS: COMPLETED DATE: 05/03/2024 02. ASSESS FOR/TREAT INFECTION : - EVALUATE FOR SIGNS AND SYMPTOMS OF INFECTION AND DOCUMENT FINDINGS. STATUS: CONTINUED DATE: 05/06/2024 03. DEBRIDE WEEKLY OR MORE OFTEN PRN : - EVALUATE PATIENT IN CENTER WEEKLY TO ASSESS WOUND BED AND MARGINS FOR NEED FOR DEBRIDEMENT. STATUS: CONTINUED DATE: 05/06/2024 - DEBRIDEMENT BY ANY METHOD TO REMOVE DEVITALIZED/NECROTIC TISSUE TO PROMOTE HEALING AND PREVENT FURTHER COMPLICATIONS. GOAL IS TO STIMULATE AND/OR MAINTAIN ACUTE PHASE OF WOUND HEALING BY REDUCING BACTERIAL BURDEN AND DEVITALIZED/NON-VIABLE TISSUE. STATUS: CONTINUED DATE: 05/06/2024 04. OPTIMIZE GLUCOSE CONTROL AND NUTRITION : - ORDER/REVIEW PERTINENT LABS TO EVALUATE RENAL FUNCTION, GLUCOSE CONTROL, AND NUTRITIONAL STATUS. STATUS: INITIATED DATE: 05/03/2024 - COMPLETE A NUTRITION RISK ASSESSMENT. STATUS: COMPLETED DATE: 05/03/2024 05. OFFLOADING PLAN : - REVIEWED, NOT APPLICABLE 06. OPTIMIZE HOST FACTORS: - ASSESS AND REVIEW PATIENT HISTORY FOR WOUND ETIOLOGY, CO-MORBID CONDITIONS, MEDICATION REGIME, AND SMOKING HISTORY. STATUS: CONTINUED DATE: 05/06/2024 07. DRESSING SELECTION : - EVALUATE FOR DRESSING-RELATED FACTORS, SUCH AVAILABILITY, WEAR TIME, ADAPTABILITY AND USE TO BETTER OPTIMIZE WOUND HEALING AND PATIENT COMPLIANCE. STATUS: CONTINUED DATE: 05/06/2024 08. ADVANCED MODALITIES : - SET TREATMENT GOALS ACCORDING TO PATIENT AND/OR CAREGIVER?S ABILITY/ COMPLIANCE. STATUS: CONTINUED DATE: 05/06/2024 09. FALL PREVENTION : - COMPLETE FALL ASSESSMENT. STATUS: COMPLETED DATE: 05/03/2024 - INFORM PATIENT AND FAMILY OF RISK OF FALLING AND DISCUSS PREVENTION STRATEGIES. STATUS: COMPLETED DATE: 05/03/2024 10. PAIN MANAGEMENT : - COMPLETE PAIN ASSESSMENT STATUS: COMPLETED DATE: 05/03/2024 11. MEASURABLE GOALS FOR WOUND HEALING AND/OR HYPERBARIC OXYGEN THERAPY : - DECREASE WOUND DIMENSIONS STATUS: CONTINUED DATE: 05/06/2024 - REDUCE EDEMA PARUL DAIGLE [id number] 1940 STATUS: CONTINUED DATE: 05/06/2024 12. DURATION/FREQUENCY OF WOUND CARE VISITS : - 2X WEEKLY FOR 30 DAYS STATUS: CONTINUED DATE: 05/06/2024 * * * *PLAN DEBRIDEMENT TODAY. RECOMMEND LYMPHADEMA REFERRAL RECOMMEND PATIENT REQUESTS REGULAR PT REFERRAL FROM PCP FOR GENERAL STRENGTH CONDITIONING DRESSING TO WOUND: CONTINUE HYDROFERA BLUA SECURED WITH MEXTRA AND COMPRESSION WRAPS RECHECK 1 WEEK ELECTRONIC SIGNATURE(S) SIGNED BY: DATE: ZAIDA OAKES PA-C 05/21/2024 10:16:27 (PT) ENTERED BY: ZAIDA OAKES PA-C ON 05/21/2024 10:15:57 (PT) PARUL DAIGLE [id number] 1940
== END ==
PROVIDERS: Family Provider Family Medicine; PCP Family Medicine; Referring Provider Family Medicine; Visit Provider Physician Assistant
DX: I87.2 Venous insufficiency (chronic) (peripheral) (principal); I89.0 Lymphedema, not elsewhere classified; L53.8 Other specified erythematous conditions; L97.322 Non-pressure chronic ulcer of left ankle with fat layer exposed; L98.8 Other specified disorders of the skin and subcutaneous tissue; R60.0 Localized edema
CPT/HCPCS: 11042; 29581; 99213

== ENCOUNTER → 2024-05-20 09:46 | Outpatient (CLI) | payer MEDICARE, OTHER, SELFPAY ==
[2024-05-20 11:42] LABS: Prostate Specific Antigen < 0.064 ng/mL (0.10-4.00)
== END ==
PROVIDERS: Family Provider Family Medicine; PCP Family Medicine; Referring Provider Urology; Visit Provider Urology
DX: C61 Malignant neoplasm of prostate (principal); R39.9 Unspecified symptoms and signs involving the genitourinary system
CPT/HCPCS: 36415; 84153

== ENCOUNTER → 2024-05-24 10:45 | Outpatient (CLI) | payer MEDICARE, OTHER, SELFPAY | LOC: WC 10:47 | PROVIDERS: Family Provider Family Medicine; PCP Family Medicine; Referring Provider Family Medicine; Visit Provider Physician Assistant | DX: I87.2 Venous insufficiency (chronic) (peripheral) (principal); I89.0 Lymphedema, not elsewhere classified; L97.322 Non-pressure chronic ulcer of left ankle with fat layer exposed; L98.8 Other specified disorders of the skin and subcutaneous tissue; R60.0 Localized edema; C61 Malignant neoplasm of prostate; G60.9 Hereditary and idiopathic neuropathy, unspecified | CPT/HCPCS: 11042; 99213 ==

== ENCOUNTER → 2024-05-30 08:49 | Outpatient (CLI) | payer MEDICARE, OTHER, SELFPAY | PROVIDERS: Family Provider Family Medicine; PCP Family Medicine; Referring Provider Family Medicine; Visit Provider Surgery | DX: I87.2 Venous insufficiency (chronic) (peripheral) (principal); L97.322 Non-pressure chronic ulcer of left ankle with fat layer exposed; L98.8 Other specified disorders of the skin and subcutaneous tissue; R60.0 Localized edema | CPT/HCPCS: 11042; 29581; 99213 ==

== ENCOUNTER → 2024-06-07 10:24 | Outpatient (CLI) | payer MEDICARE, OTHER, SELFPAY | LOC: WC 10:25 | PROVIDERS: Family Provider Family Medicine; PCP Family Medicine; Referring Provider Family Medicine; Visit Provider Surgery | DX: I87.2 Venous insufficiency (chronic) (peripheral) (principal); L97.322 Non-pressure chronic ulcer of left ankle with fat layer exposed; R60.0 Localized edema; C61 Malignant neoplasm of prostate | CPT/HCPCS: 11042; 99213 ==

== ENCOUNTER → 2024-06-14 11:43 | Outpatient (CLI) | payer MEDICARE, OTHER, SELFPAY | PROVIDERS: Family Provider Family Medicine; PCP Family Medicine; Referring Provider Family Medicine; Visit Provider Physician Assistant | DX: I87.2 Venous insufficiency (chronic) (peripheral) (principal); L97.322 Non-pressure chronic ulcer of left ankle with fat layer exposed; I89.0 Lymphedema, not elsewhere classified; R60.0 Localized edema; L98.8 Other specified disorders of the skin and subcutaneous tissue; G62.9 Polyneuropathy, unspecified | CPT/HCPCS: 97597; 99213 ==

== ENCOUNTER → 2024-06-21 13:36 | Outpatient (CLI) | payer MEDICARE, OTHER, SELFPAY | LOC: WC 13:38 | PROVIDERS: Family Provider Family Medicine; PCP Family Medicine; Referring Provider Family Medicine; Visit Provider Physician Assistant | DX: I87.2 Venous insufficiency (chronic) (peripheral) (principal); L97.322 Non-pressure chronic ulcer of left ankle with fat layer exposed; I89.0 Lymphedema, not elsewhere classified; G62.9 Polyneuropathy, unspecified; L98.8 Other specified disorders of the skin and subcutaneous tissue; R60.0 Localized edema | CPT/HCPCS: 11042; 29581; 99213 ==

== ENCOUNTER → 2024-06-28 10:48 | Outpatient (CLI) | payer MEDICARE, OTHER, SELFPAY ==
--- NOTE | 2024-06-28 10:51 | DI.RAD.S_ITS ---
PROCEDURE: XR DEXA AXIAL SKELETON INDICATIONS: SPINE PAIN/COMPRESSION DEFORM OF VERT/FALL RISK COMPARISON: [facility], , XR DEXA AXIAL SKELETON, 01/05/2022, 10:03. FINDINGS: Lumbar Spine: Bone mineral density 1.057 g/cm2, T score 0.1, previously -0.7. Please note that the lowest T-score is -1.0 for the L3 vertebral body. Left Femoral Neck: Bone mineral density 0.617 g/cm2, T score -2.1. Left Hip: Bone mineral density 0.843 g/cm2, T score -0.8, previously -0.7. Fracture Risk Calculation (when applicable): 10-year fracture risk of a major osteoporotic fracture 9.0 percent and of a hip fracture 3.8 percent. (T score greater or equal to -1.0 to: NORMAL) (T score from -1.1 to -2.4: OSTEOPENIA) (T score less than or equal to -2.5: OSTEOPOROSIS) IMPRESSION: 1. Normal bone density of the lumbar spine, although the L3 vertebral body is borderline osteopenic. 2. Osteopenia of the left femoral neck. 3. Normal bone density of the left hip. Follow-up guidelines as follows: Osteoporosis: Consider a repeat DEXA and Vertebral Fracture Assessment (VFA) exam in 2 years or sooner if medically necessary, to reassess this patient's status. Osteopenia: Consider a repeat DEXA in 2-3 years to reassess this patient's status, or if there is a new clinical indication. Normal: Consider a repeat DEXA in 5 years or sooner, or if there is a new clinical indication. All treatment decisions require clinical judgment and consideration of individual patient factors, including patient preferences, comorbidities, previous drug use, risk factors not captured in the FRAX model (e.g., frailty, falls, vitamin D deficiency, increased bone turnover, interval significant decline in bone density ) and possible under- or over-estimation of fracture risk by FRAX. In addition, the NOF Guide recommends that FDA-approved medical therapies be considered in postmenopausal women and men age >= 50 years with a: * Hip or vertebral (clinical or morphometric) fracture * T-score of <=-2.5 at the spine or hip * Ten-year fracture probability by FRAX of >= 3% for hip fracture or >=20% for major osteoporotic fracture. Dictated by: Arias Timmons M.D. on 06/28/2024 at 16:59 Approved by: Arias Timmons M.D. on 06/28/2024 at 17:00
--- NOTE | 2024-06-28 10:56 | DI.RAD.S_ITS ---
PROCEDURE: XR SACROILIAC JOINT MIN 3V INDICATIONS: SPINE PAIN/COMPRESSION DEFORM OF VERT/FALL RISK TECHNIQUE: 3 views of the sacroiliac joints were acquired. COMPARISON: None. FINDINGS: Diffuse osseous demineralization. Faint lucencies at the right sacral ala. Mild bilateral sacroiliac joint osteoarthritis. Surgical clips overlying the pubic symphysis. Mild bilateral hip osteoarthritis. IMPRESSION: Possible right sacral alar insufficiency fractures. If there is a history of trauma, consider an MRI of the pelvis without contrast for confirmation. Dictated by: Arias Timmons M.D. on 06/28/2024 at 16:45 Approved by: Arias Timmons M.D. on 06/28/2024 at 16:48
[2024-06-28 13:11] LABS: Prostate Specific Antigen < 0.064 ng/mL (0.10-4.00)
== END ==
PROVIDERS: Radiology Radiation Oncology; Family Provider Family Medicine; PCP Family Medicine; Referring Provider Physician Assistant; Visit Provider Physician Assistant
DX: M81.0 Age-related osteoporosis without current pathological fracture (principal); M85.852 Other specified disorders of bone density and structure, left thigh; M46.1 Sacroiliitis, not elsewhere classified; M16.0 Bilateral primary osteoarthritis of hip; M43.9 Deforming dorsopathy, unspecified; C61 Malignant neoplasm of prostate; M54.9 Dorsalgia, unspecified; Z91.81 History of falling; Z87.2 Personal history of diseases of the skin and subcutaneous tissue; R23.4 Changes in skin texture; G62.9 Polyneuropathy, unspecified; R60.0 Localized edema
CPT/HCPCS: 29581; 36415; 72202; 77080; 84153

== ENCOUNTER → 2024-06-28 14:04 | Outpatient (CLI) | payer MEDICARE, OTHER, SELFPAY | PROVIDERS: Family Provider Family Medicine; PCP Family Medicine; Referring Provider Family Medicine; Visit Provider Physician Assistant | DX: Z87.2 Personal history of diseases of the skin and subcutaneous tissue (principal); R23.4 Changes in skin texture; G62.9 Polyneuropathy, unspecified; R60.0 Localized edema | CPT/HCPCS: 29581; 99212 ==

== ENCOUNTER → 2024-11-13 12:12 | Outpatient (CLI) | payer MEDICARE, OTHER, SELFPAY ==
[2024-11-13 13:45] LABS: Prostate Specific Antigen < 0.064 ng/mL (0.10-4.00)
== END ==
PROVIDERS: Family Provider Family Medicine; PCP Family Medicine; Referring Provider Urology; Visit Provider Urology
DX: C61 Malignant neoplasm of prostate (principal)
CPT/HCPCS: 36415; 84153

== ENCOUNTER → 2025-01-09 16:16 | Outpatient (CLI) | payer MEDICARE, OTHER, SELFPAY ==
[2025-01-09 17:12] LABS: Add Manual Diff / Slide Review NO; Hematocrit 38.8 % (41-53); Hemoglobin 13.3 g/dL (13.5-17.5); Lymphocytes Absolute Auto 700 /uL (1100-4500); Mean Corpuscular HGB Conc 34.3 % (30-36); Mean Corpuscular Hemoglobin 33.4 PG (26-34); Mean Corpuscular Volume 97.3 fL (80-100); Platelet Count 169 X10^3/uL (150-400)
[2025-01-09 17:23] LABS: Hemoglobin A1C% w Est Avg Glu 6.3 % (4.0-6.0)
[2025-01-09 18:11] LABS: Alanine Aminotransferase 28 IU/L (<50); Albumin 4.0 g/dL (3.5-5.0); Albumin Globulin Ratio 1.1 (1.0-2.8); Alkaline Phosphatase 92 U/L (38-126); Blood Urea Nitrogen 36 mg/dL (9-20); Calcium 9.5 mg/dL (8.4-10.2); Carbon Dioxide 27 mmol/L (22-32); Chloride 104 mmol/L (98-107); Cholesterol 145 mg/dL (140-199); Estimated Glomerular Filt Rate 38 mL/min (>60); Globulin 3.7 g/dL (1.7-4.1); Glucose 122 mg/dL (70-99); HDL Cholesterol 55 mg/dL (40-60); HEMOLYSIS < 15 (0-50); Potassium 4.8 mmol/L (3.4-5.1); Sodium 141 mmol/L (137-145); Total Protein 7.7 g/dL (6.3-8.2); Triglycerides 123 mg/dL (35-150)
[2025-01-09 19:32] LABS: Thyroid Stimulating Hormone 4.94 uIU/mL (0.47-4.68)
== END ==
PROVIDERS: PCP Family Medicine; Referring Provider Family Medicine; Visit Provider Family Medicine
DX: E66.01 Morbid (severe) obesity due to excess calories (principal); R73.09 Other abnormal glucose; E03.9 Hypothyroidism, unspecified; C61 Malignant neoplasm of prostate; I10 Essential (primary) hypertension; E78.2 Mixed hyperlipidemia
CPT/HCPCS: 36415; 80053; 80061; 83036; 84443; 85025

== ENCOUNTER → 2025-01-10 15:10 | Outpatient (CLI) | payer MEDICARE, OTHER, SELFPAY ==
[2025-01-10 18:11] LABS: Prostate Specific Antigen < 0.064 ng/mL (0.10-4.00)
== END ==
PROVIDERS: PCP Family Medicine; Referring Provider Radiology Radiation Oncology; Visit Provider Radiology Radiation Oncology
DX: C61 Malignant neoplasm of prostate (principal)
CPT/HCPCS: 36415; 84153